=== PATIENT | female | born 1940 | race Caucasian/White ===

== ENCOUNTER → 2023-06-20 10:28 | Outpatient (REF) | payer OTHER, SELFPAY | LOC: OLABN 10:28 | PROVIDERS: ATTENDING PHYSICIAN Student in an Organized Health Care Education/Training Program | DX: E11.9 Type 2 diabetes mellitus without complications (principal) | CPT/HCPCS: 36415; 83036 ==

== ENCOUNTER → 2023-06-29 11:03 | Outpatient (REF) | payer OTHER, SELFPAY ==
[2023-06-29 12:00] LABS: % Basophils 0.7 % (0-2); % Eosinophils 1.1 % (0-6); % Immature Granulocytes 0.5 % (0-0.5); % Lymphocytes 27.6 % (20.5-51.1); % Monocytes 11.4 % (1.7-9.3); % Neutrophils 58.7 % (42.2-75.2); Absolute Basophils 0.1 10^3/uL (0-0.2); Absolute Eosinophils 0.1 10^3/uL (0-0.7); Absolute Immature Granulocytes 0.1 10^3/uL (0-0.05); Absolute Lymphocytes 2.7 10^3/uL (1.2-3.4); Absolute Monocytes 1.1 10^3/uL (0.1-0.6); Absolute Neutrophils 5.7 10^3/uL (1.4-6.5); Hematocrit 35.1 % (37.0-47.0); Hemoglobin 11.2 g/dL (12.0-16.0); Mean Corp Hgb Conc. 31.9 g/dL (33.0-37.0); Mean Corpuscular Hgb 26.4 pg (27.0-31.0); Mean Corpuscular Volume 82.6 fL (81.0-99.0); Nucleated Red Blood Cells % 0 %; Platelet Count 291 10^3/uL (130-400); Red Blood Cell Count 4.25 10^6/uL (4.20-5.40); Red Cell Dist. Width 16.6 % (11.5-14.5); White Blood Cell Count 9.6 10^3/uL (4.8-10.8)
[2023-06-29 12:10] LABS: ALT (SGPT) 42 U/L (0-35); AST (SGOT) 34 U/L (14-36); Albumin 3.2 g/dl (3.5-5.0); Alkaline Phosphatase 122 U/L (38-126); Blood Urea Nitrogen 14 mg/dl (7-17); Calcium 8.6 mg/dl (8.4-10.2); Carbon Dioxide 22 mmol/L (22-30); Chloride 102 mmol/L (98-107); Glucose 276 mg/dl (70-99); LDH 149 U/L (120-246); Potassium 4.3 mmol/L (3.5-5.1); Sodium 129 mmol/L (135-145); Total Bilirubin 0.4 mg/dl (0.2-1.3); Total Protein 6.3 g/dl (6.3-8.2); eGFR > 60.00
[2023-06-29 12:36] LABS: TSH 3.46 uIU/ml (0.47-4.68)
[2023-06-29 16:44] LABS: Hepatitis B Surface Antigen Negative (Negative)
[2023-06-29 18:36] LABS: Hepatitis B Core Ab, Total Negative (Negative); Hepatitis B Surface Antibody Negative; Hepatitis C Antibody Negative (Negative)
== END ==
LOC: OLABN 11:03
PROVIDERS: ATTENDING PHYSICIAN Student in an Organized Health Care Education/Training Program
DX: C43.59 Malignant melanoma of other part of trunk (principal)
CPT/HCPCS: 36415; 80053; 83615; 84443; 85025; 86704; 86706; 86803; 87340

== ENCOUNTER → 2023-07-18 09:18 | Outpatient (REF) | payer OTHER, SELFPAY ==
[2023-07-18 10:29] LABS: % Basophils 0.7 % (0-2); % Eosinophils 0.1 % (0-6); % Immature Granulocytes 0.7 % (0-0.5); % Lymphocytes 14.2 % (20.5-51.1); % Monocytes 10.3 % (1.7-9.3); Absolute Basophils 0.1 10^3/uL (0-0.2); Absolute Immature Granulocytes 0.1 10^3/uL (0-0.05); Absolute Lymphocytes 1.1 10^3/uL (1.2-3.4); Absolute Monocytes 0.8 10^3/uL (0.1-0.6); Absolute Neutrophils 5.5 10^3/uL (1.4-6.5); Hemoglobin 13.1 g/dL (12.0-16.0); Mean Corp Hgb Conc. 33.6 g/dL (33.0-37.0); Mean Corpuscular Hgb 26.5 pg (27.0-31.0); Mean Corpuscular Volume 78.8 fL (81.0-99.0); Mean Platelet Volume 9.7 fL (7.4-10.4); Nucleated Red Blood Cells % 0 %; Platelet Count 235 10^3/uL (130-400); Red Blood Cell Count 4.95 10^6/uL (4.20-5.40); Red Cell Dist. Width 16.1 % (11.5-14.5); White Blood Cell Count 7.4 10^3/uL (4.8-10.8)
[2023-07-18 10:44] LABS: ALT (SGPT) 39 U/L (0-35); AST (SGOT) 48 U/L (14-36); Albumin 3.5 g/dl (3.5-5.0); Alkaline Phosphatase 88 U/L (38-126); Blood Urea Nitrogen 16 mg/dl (7-17); Calcium 8.5 mg/dl (8.4-10.2); Carbon Dioxide 21 mmol/L (22-30); Chloride 92 mmol/L (98-107); Glucose 37 mg/dl (70-99); Magnesium 1.9 mg/dl (1.6-2.3); Potassium 3.7 mmol/L (3.5-5.1); Sodium 127 mmol/L (135-145); Total Bilirubin 0.7 mg/dl (0.2-1.3); Total Protein 6.8 g/dl (6.3-8.2); eGFR > 60.00
== END ==
LOC: OLABN 09:18
PROVIDERS: ATTENDING PHYSICIAN Student in an Organized Health Care Education/Training Program
DX: E11.9 Type 2 diabetes mellitus without complications (principal)
CPT/HCPCS: 36415; 80053; 83735; 85025

== ENCOUNTER 2023-07-23 20:42 | Inpatient (IN) | payer OTHER, SELFPAY ==
[2023-07-23] VITALS (10 sets, daily range): BP systolic 75–128; BP diastolic 31–63; BMI 25.7
[2023-07-23 18:21] LABS: % Basophils 0.6 % (0-2); % Eosinophils 0.7 % (0-6); % Immature Granulocytes 0.7 % (0-0.5); % Lymphocytes 24.5 % (20.5-51.1); % Monocytes 12.9 % (1.7-9.3); % Neutrophils 60.6 % (42.2-75.2); Absolute Basophils 0.1 10^3/uL (0-0.2); Absolute Eosinophils 0.1 10^3/uL (0-0.7); Absolute Immature Granulocytes 0.1 10^3/uL (0-0.05); Absolute Lymphocytes 2.1 10^3/uL (1.2-3.4); Absolute Monocytes 1.1 10^3/uL (0.1-0.6); Absolute Neutrophils 5.3 10^3/uL (1.4-6.5); Hematocrit 41.1 % (37.0-47.0); Hemoglobin 14.1 g/dL (12.0-16.0); Mean Corp Hgb Conc. 34.3 g/dL (33.0-37.0); Mean Corpuscular Hgb 26.4 pg (27.0-31.0); Mean Platelet Volume 8.3 fL (7.4-10.4); Nucleated Red Blood Cells % 0 %; Platelet Count 329 10^3/uL (130-400); Red Blood Cell Count 5.34 10^6/uL (4.20-5.40); Red Cell Dist. Width 15.9 % (11.5-14.5); White Blood Cell Count 8.7 10^3/uL (4.8-10.8)
[2023-07-23 18:34] LABS: ALT (SGPT) 71 U/L (0-35); AST (SGOT) 61 U/L (14-36); Albumin 3.8 g/dl (3.5-5.0); Alkaline Phosphatase 104 U/L (38-126); Blood Urea Nitrogen 12 mg/dl (7-17); Calcium 8.8 mg/dl (8.4-10.2); Carbon Dioxide 24 mmol/L (22-30); Chloride 93 mmol/L (98-107); Glucose 231 mg/dl (70-99); Potassium 3.6 mmol/L (3.5-5.1); Sodium 124 mmol/L (135-145); Total Protein 7.1 g/dl (6.3-8.2); eGFR > 60.00
--- NOTE | 2023-07-23 19:12 | ED.GENMED ---
History of Present Illness
General
Chief Complaint: Abnormal Lab Value
Source: patient, ambulance crew and [facility] records
Exam Limitations: none
Time Seen by Provider: 07/23/23 18:43
Nursing documentation reviewed up to this point in time: agreed with
Travel History
Have you had any contact with someone who has COVID-19?: No
Do you have any symptoms of coronavirus? Fever > 100 degrees, chills, cough, shortness of breath, sore throat, loss of taste or smell, muscle aches, or headache?: No
History of Present Illness
History of Present Illness:
83 female presents emergency department due to increased confusion per [facility]. Her sodium was 125 earlier today. She is on adjuvant therapy for melanoma.
Past History
Past History
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
ED Past Surgical History: None
Social History
Tobacco: Former smoker
Alcohol: None
Drug: None
Personal: Single
Living: alone
Employment: Retired
Family History
Family History: Other (Noncontributory)
Review of Systems
Review of Systems
Allergies reviewed?: Yes
All Other Systems: Not applicable
Constitutional: Reports no symptoms
EENT: Reports no symptoms
Respiratory: Reports no symptoms
Cardiac: Reports no symptoms
ABD/GI: Reports no symptoms
: Reports no symptoms
Musculoskeletal: Reports no symptoms
Skin: Reports no symptoms
Neurological: Reports other (Confusion)
Endocrine: Reports no symptoms
Hematologic/Lymphatic: Reports no symptoms
Psychiatric: Reports no symptoms
Phy Exam
Physical Exam
Physical Exam:
Physical Exam
General: Ill appearance, afebrile
Neck: supple. no meningeal signs. normal posterior pharynx
Heart: s1/s2 regular rate and rhythm, no murmur. equal radial
pulses.
HEENT: Pupils equal round reactive to light, EOMI
Lungs: no acute respiratory distress. clear bilaterally
Abdomen: normal bowel sounds. not tender. no CVAT
Neuro: alert and oriented. no focal neurological deficits cranial nerves II through XII intact
Skin: no rash
Psychiatric: well kept. interactive and cooperative
Extremities: no edema. no calf tenderness. negative homans. good distal pulses
Course
Orders/Labs/Results
Orders:
Orders
07/23/23 Dinner
Regular
At Your Request: Limited, Payroll Processor Required
07/23/23 18:02
Electrocardiogram (*1) Urgent
Reason for Study: QTc Monitoring
EKG- Treatment ONCE
07/23/23 18:12
Complete Blood Count/With Diff Urgent
Comprehensive Metabolic Panel Urgent
Serum Osmolality Urgent
07/23/23 19:16
Add On- LAB Urgent
Tests Added?: serum osmolality
CT Head W/o Iv Contrast Urgent
Comment:
Reason For Exam: episodic confusion
07/23/23 20:10
Admit/Transfer Patient As Directed
Co-Sign Provider:
Level of Care: Inpatient admission
Assign to:: IMU- Intermediate Care
Physician / Group: cristina
Diagnosis: uti/hyponatremia
Reason for Hospitalization: uti/hyponatremia
Expected length of stay greater than two midnights?: Yes
ELOS- Estimated Length of Stay in days: 2
I certify the patient meets the requirements for IP care: Yes
Code Status As Directed
Resuscitation Status: Full Code
07/23/23 20:12
0.9% Sodium Chloride 500 ml [Nss] 500 ml IV BOLUS
07/23/23 20:26
Osmolality, Random Urine Urgent
Date Specimen was Collected: 07/23/23
Time Specimen was Collected: 20:25
Urine Sodium Urgent
Date Specimen was Collected: 07/23/23
Time Specimen was Collected: 20:25
07/23/23 21:57
0.9% Sodium Chloride 1000 ml [Nss] 1,000 ml IV 80 mls/hr
Acetaminophen [Tylenol] 650 mg PO Q4HPRN PRN
Bisacodyl [Dulcolax] 10 mg RECTAL DAILYPRN PRN
Dextrose 50%-Water [Dextrose 50% Syringe] 12.5 grams IV Q71PVHT PRN
Glucagon [GlucaGen] 1 mg IM PRN PRN
Magnesium Hydroxide [Milk of Magnesia] 30 ml PO HSPRN PRN
Ondansetron Injectable [Zofran] 4 mg IV Q6HPRN PRN
07/23/23 21:57
Activity As Directed
Activity Level: As Tolerated
Bedside Glucose Monitoring As Directed
Frequency: AC&HS
Additional Instructions:: Change to q6h if pt on TPN, tube feeding or not eating
Vital Signs As Directed
Frequency: Per unit guidelines
DX Deep Vein Thrombosis Video Routine
07/23/23 22:00
CefTRIAXone [Rocephin] 1,000 mg IV Q24H
Sterile Water [Sterile Water For Injection] 10 ml IV Q24H
07/24/23 06:00
Complete Blood Count/With Diff IN AM
Glycohemoglobin (HgbA1c) IN AM
07/24/23 07:30
Insulin Aspart Corrective Low [Novolog Flexpen-Low Resistance] See Protocol SC AC
07/24/23 08:00
Heparin 5,000 units SC Q12
07/24/23 08:30
Amiodarone [Pacerone] 200 mg PO DAILY@0830
Metoprolol [Lopressor] 25 mg PO BID@0830,1830
07/24/23 18:30
Sodium Chloride 1 gram PO DAILY@1830
08/15/23 08:30
Cyanocobalamin [Vitamin B-12] 1,000 mcg PO Q30D
Abnormal Lab Results
07/23/23
18:12
MCV 77.0 L fL
(81.0-99.0)
MCH 26.4 L pg
(27.0-31.0)
RDW 15.9 H %
(11.5-14.5)
Abs Immat Gran (auto) 0.1 H 10^3/uL
(0-0.05)
Absolute Monos (auto) 1.1 H 10^3/uL
(0.1-0.6)
Immature Gran % 0.7 H %
(0-0.5)
Monocytes % 12.9 H %
(1.7-9.3)
Sodium 124 L mmol/L
(135-145)
Chloride 93 L mmol/L
(98-107)
Glucose 231 H mg/dl
(70-99)
AST 61 H U/L
(14-36)
ALT 71 H U/L
(0-35)
07/23/23 18:12
07/23/23 18:12
Vital Signs
Initial and Last Documented VS:
Initial Vital Signs
Temp Pulse Resp BP Pulse Ox
98.3 F 69 18 111/62 94
07/23/23 17:56 07/23/23 17:56 07/23/23 17:56 07/23/23 17:56 07/23/23 17:56
Last Documented Vital Signs
Temp Pulse Resp BP Pulse Ox
97.4 F 81 16 118/68 99
07/23/23 22:09 07/24/23 00:54 07/24/23 00:54 07/24/23 00:54 07/24/23 00:54
MDM/Problems Addressed
Differential Diagnosis Includes:
.. Intracranial tumor, SIADH
MDM/Problems Addressed:
83-year-old female with hyponatremia of unclear etiology. Episodic confusion, possibly TIA versus. Toxic metabolic encephalopathy. Admit to hospitalist
Chronic conditions affecting care: Arrhythmia and Cancer
Acute Exacerbation and/or Progression of Chronic Illness: Arrhythmia and Cancer
*Radiology
Radiology exam reviewed: radiology read reviewed (CT head no acute findings)
*Pulse Oximetry
Patient hypoxic: no
*EKG
Interpreted by ED Provider?: Yes
EKG Intrepretation Date: 07/23/23
EKG Intrepretation Time: 18:03
Interpretation: abnormal
Comparison EKG: changes noted
Heart Rate: 76
Rate: normal
Rhythm: av sequential
[place]: normal axis
Interval: normal interval
QRS Pattern: normal QRS
Ischemia: non-specific ST changes
*Oral And Maxillofacial Surgery Resident Interpretation
Rate: Oral And Maxillofacial Surgery Resident- N/A
*Critical Care Note
Total Time (30-74mins, 75-104mins- exclusive of procedures): Not Applicable
Data Reviewed
Review of Other/Old Records Reveals: Labs
Patient Management
Social determinants of health affecting care: Living situation
Discussion with other providers: Hospitalist
Escalation/DeEscalation of care consider admission/obs:
Admit indicated
ED Attending Note
-
Portions of this chart may have been created with voice recognition software.� Occasional wrong word or��sound alike� substitutions may have occurred due to the inherent limitations of voice recognition software.
Discharge Plan
Departure
Patient Disposition: Admit
Date of Disposition: 07/23/23
Time of Disposition: 19:53
Admit to: Telemetry
Presentation/result/management discussed w/ accepting MD/DO: Hospitalist
Patient with high blood pressure during this ER visit?: No
Condition: Fair
Discharge Problem:
Hyponatremia, Altered mental status
Interventions
Interventions:
*Risk Screen - Suicide Last Done: 07/23/23 17:56
*General Assessment Last Done: 07/23/23 18:46
*Neglect/Abuse Screening Last Done: 07/23/23 18:46
ED- Fall Risk Assessment Last Done: 07/23/23 18:29
*ED COVID-19 Vaccine History Last Done: 07/23/23 22:20
*Nursing Disposition Last Done: 07/23/23 22:16
Discharge Date and Time
Discharge Date/Time: 07/23/23 22:17
[2023-07-23 20:12] LABS: Osmolality Serum 275 mOsm/kg (275-300)
--- NOTE | 2023-07-23 20:15 | HPS.HSE ---
Family Physician
-
Family Physician: Derrell Mello DO
Chief Complaint
-
vomiting
History of Present Illness
83-year-old female with past medical history of paroxysmal atrial fibrillation, sleep apnea, hypertension, hypercholesteremia, diabetes, macular degeneration, melanoma with spread to lymph nodes status post first dose of immunotherapy on July 02,
presenting from [facility] for weakness.
Patient received first dose of immunotherapy for malignant melanoma on July 02. In the days following that she has had decreased p.o. intake, nausea and vomiting. Particularly over the past few days she has been feeling very weak. No fevers or
chills. No urinary symptoms. She also did have diarrhea in the past 2 weeks but this has resolved. No abdominal pain. No chest pain or shortness of breath. No cough.
Medical History
Past Medical History
Past Medical History: Reports Other (paroxysmal atrial fibrillation, sleep apnea, hypertension, hypercholesteremia, diabetes, macular degeneration, melanoma with spread to lymph nodes)
Past Surgical History: Reports None
Social History
Tobacco: Non-smoker
Alcohol: None
Drug: None
Family History
Family History: Not pertinent
Allergies / Home Medications
Allergies reflects when Allergies were last updated in [facility].
Home Medications with original date entered in [facility]
Allergy/Medication List:
Allergies
Allergy/AdvReac Type Severity Reaction Status Date / Time
No Known Allergies Allergy Verified 12/04/22 00:19
Home Medications
amiodarone 200 mg tablet 200 mg PO DAILY@82912/04/22
amlodipine 5 mg tablet 5 mg PO DAILY@82912/04/22
cyanocobalamin (vitamin B-12) 1,000 mcg tablet 1,000 mcg PO QMONTH@82912/04/22
gabapentin 100 mg capsule 100 mg PO TID@0830,1330,1830 12/04/22
metoprolol tartrate 25 mg tablet 25 mg PO BID@829,1830 12/04/22
Normal Saline Flush 0 ml IV .SEE BELOW 07/23/23
acetaminophen 325 mg tablet (Tylenol) 650 mg PO Q4H PRN mild pain/fever>100.4 07/23/23
bisacodyl 10 mg rectal suppository 10 mg OH DAILY PRN q 3 days when no BM and MOM/lactulose ineffective 07/23/23
glimepiride 2 mg tablet 2 mg PO DAILY@82907/23/23
lorazepam 0.5 mg tablet 0.25 mg PO DAILYPRN PRN 1 hr prior to transport p/u to [facility] appt. 07/23/23
magnesium hydroxide 400 mg/5 mL oral suspension (Milk of Magnesia) 30 ml PO HSPRN PRN constipation 07/23/23
metformin 500 mg tablet 500 mg PO DAILY@82907/23/23
ondansetron HCl 4 mg tablet 4 mg PO Q6H PRN nausea/vomiting 07/23/23
sodium chloride 1,000 mg soluble tablet 1,000 mg PO DAILY@182907/23/23
Review of Systems
-
History Source: Patient
A 12 point ROS was completed and negative except as noted: Yes
Constitutional: Reports No Symptoms
EENT: Reports No Symptoms
Respiratory: Reports No Symptoms
Cardiac: Reports No Symptoms
Abdomen/GI: Reports See HPI
: Reports No Symptoms
Musculoskeletal: Reports No Symptoms
Skin: Reports No Symptoms
Neurological: Reports No Symptoms
Endocrine: Reports No Symptoms
Hematologic/Lymphatic: Reports No Symptoms
Psych: Reports No Symptoms
Physical Exam
Vital Signs
Vital Signs
Temp Pulse Resp BP Pulse Ox
98.3 F 74 17 118/58 98
07/23/23 17:56 07/23/23 18:30 07/23/23 18:30 07/23/23 18:00 07/23/23 18:47
Physical Exam
General: Well Developed, Well Nourished and No Apparent Distress
HEENT: NormoCephalic, Moist mucous membranes and Atraumatic
Respiratory: Clear
Cardiac: S1/S2 and Regular Rhythm; No Murmur or Rub
GI: Soft, Non Tender, Non Distended and Normal Bowel Sounds; No Organomegaly
Rectal: Deferred by Provider
Musculoskeletal: No Clubbing, No Cyanosis and No Edema
Skin: No Rash
Neuro: Nonfocal/grossly intact
Laboratory Results
-
07/23/23 18:12
07/23/23 18:12
Laboratory Results
Total Bilirubin 1.0 mg/dl (0.2-1.3) 07/23/23 18:12
AST 61 U/L (14-36) H 07/23/23 18:12
ALT 71 U/L (0-35) H 07/23/23 18:12
Alkaline Phosphatase 104 U/L (38-126) 07/23/23 18:12
Data Reviewed
-
Lab Data: Labs Reviewed by me
Old Records: Reviewed
Impression/Plan
-
IMPRESSION:
PLAN:
# Metabolic encephalopathy secondary to UTI/hyponatremia
-See individually below
# Suspected urinary tract infection
-Patient with blood pressure in 80s, hold amlodipine
-Urinalysis shows slightly cloudy urine, 6-10 WBC, trace leukocyte esterase
-Urine culture pending
-IV fluids
-Ceftriaxone
# Nausea/vomiting after immunotherapy
-As needed Zofran
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
-Sodium 124 from baseline of 129-135
-Urine sodium, osmolality pending
-Monitor with IV fluids
-Continue sodium chloride tablet
# Mild transaminitis
-Improved from previous
Melanoma
-Status post immunotherapy /
Paroxysmal atrial fibrillation
-Continue amiodarone
-Continue metoprolol
Suspected sleep apnea
Essential hypertension
- hold amlodipine
Hypercholesterolemia
Type 2 diabetes
-Hold glimepiride, metformin
-Insulin sliding scale
Neuropathy
-Hold gabapentin
Macular degeneration
Full code
DVT prophylaxis�heparin
Regular diet
[2023-07-23] MEDS: ROCEPHIN 1000 MG IV (20:29)
[2023-07-23] MEDS: NSS 500 IV (20:29)
[2023-07-23 20:35] LABS: Osmolality Urine 713 mOsm/kg (300-900)
[2023-07-23 20:49] LABS: Urine Sodium 83 mmol/L (30-90)
[2023-07-23 22:47] LABS: Glucose - Point of Care 212 mg/dl (70-99)
--- NOTE | 2023-07-23 22:50 | PTCARENOTE ---
Addendum entered by Amanda Lamas RN 07/24/23 01:43:
Pt feeling nausea, PRN given see MAR. Pt continues to call out 'nurse' asking that someone to stay in the room with her. Emotional support given. Vitals stable at this time.
Original Note:
Pt brought up by ED RN. Pt AAOX3 with daughter at bed side. Pt verbalizing anxiety about daughter leaving, daughter asking if Ativan could be given for anxiety. Per daughter Ativan is what she takes at [facility] when needed. Emotional support
given and night ALARM MECHANISM ADJUSTER made aware.
[2023-07-23] MEDS: NSS 1000 IV (22:51)
[2023-07-23] MEDS: STERILE WATER FOR INJECTION IV (23:09)
[2023-07-24] VITALS (14 sets, daily range): BP systolic 96–126; BP diastolic 46–99; BMI 25.1
[2023-07-24] MEDS: PHENERGAN 50.25 MG IV (00:52)
[2023-07-24 03:52] LABS: % Basophils 0.6 % (0-2); % Eosinophils 0.4 % (0-6); % Immature Granulocytes 0.7 % (0-0.5); % Lymphocytes 18.7 % (20.5-51.1); % Monocytes 9.6 % (1.7-9.3); Absolute Basophils 0.1 10^3/uL (0-0.2); Absolute Immature Granulocytes 0.1 10^3/uL (0-0.05); Absolute Lymphocytes 1.8 10^3/uL (1.2-3.4); Absolute Monocytes 0.9 10^3/uL (0.1-0.6); Absolute Neutrophils 6.6 10^3/uL (1.4-6.5); Hematocrit 39.4 % (37.0-47.0); Hemoglobin 13.8 g/dL (12.0-16.0); Mean Platelet Volume 8.2 fL (7.4-10.4); Nucleated Red Blood Cells % 0 %; Platelet Count 310 10^3/uL (130-400); Red Blood Cell Count 5.12 10^6/uL (4.20-5.40); Red Cell Dist. Width 15.8 % (11.5-14.5); White Blood Cell Count 9.5 10^3/uL (4.8-10.8)
[2023-07-24 05:01] LABS: Blood Urea Nitrogen 10 mg/dl (7-17); Calcium 8.1 mg/dl (8.4-10.2); Carbon Dioxide 26 mmol/L (22-30); Chloride 95 mmol/L (98-107); Estimated Creatinine Clearance 64 ml/min; Glucose 247 mg/dl (70-99); Potassium 3.5 mmol/L (3.5-5.1); Sodium 127 mmol/L (135-145); eGFR > 60.00
[2023-07-24 07:48] LABS: Glucose - Point of Care 226 mg/dl (70-99)
[2023-07-24 08:32] LABS: Glycohemoglobin (HgbA1c) 8.7 % (4.0-5.6)
--- NOTE | 2023-07-24 08:55 | W.PN.HOSP.TC ---
Today's Communication/Plan
-
Obtain cultures and cont IV antibiotics. Salt tablets and fluid restriction -monitor sodium. Diabetic diet. PT OT.
Assessment / Plan
Assessment / Plan
Physical exam:
General: Acutely ill
HEENT: Normocephalic, Atraumatic and Moist Mucous Membranes
Respiratory: Clear to Auscultation; Negative Wheezes, Rales or Rhonchi
Cardiac: Regular Rhythm and S1/S2
GI: Soft, Nontender and Nondistended
Musculoskeletal: No Clubbing, No Cyanosis and No Edema
Neuro: Awake, Alert and Oriented although slightly off, no gross neurological deficits
Psych: Calm
A/P:
# Metabolic encephalopathy secondary to possible UTI/worsening hyponatremia
-Improving
-CT of the head no acute intracranial abnormalities
-PT OT tavon
-Updated son over the phone today (he is in rehab himself) and then called her daughter.
# Suspected urinary tract infection
-I do not see any cultures upon admission so patient on antibiotic and will obtain blood cultures and urine cultures today 07/23.
-Continue empiric antibiotics
-Hemodynamically stable. Stop IV fluids
Patient upon admission per admitting physician:
-Patient with blood pressure in 80s, hold amlodipine
-Urinalysis shows slightly cloudy urine, 6-10 WBC, trace leukocyte esterase
-Urine culture pending
-IV fluids
-Ceftriaxone
# Nausea/vomiting after immunotherapy
-As needed Zofran
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
-Urine sodium 83, urine osmolarity 713
-Given IV fluid and sodium went up from 124 to 127 (appropriately going up in the timeframe of admission)
-Start fluid restriction today on 07/23
-Continue salt tablets 1 g p.o. daily
-Continue to monitor sodium
# Mild transaminitis
-Improved from previous
-Check ultrasound hepatitis panel and
-Will recheck in a.m.
Melanoma
-Status post immunotherapy 4/2
Paroxysmal atrial fibrillation
-Continue amiodarone
-Continue metoprolol
-Not on anticoagulation, unsure why.
Suspected sleep apnea
Essential hypertension
-Continue to hold amlodipine
Hypercholesterolemia
Type 2 diabetes
-Hold glimepiride, metformin
-Continue insulin sliding scale
-Change diet to diabetic diet.
Neuropathy
-Continue to hold gabapentin
Macular degeneration
Full code
DVT prophylaxis�heparin
Time spent 52 minutes with patient care, reviewing records, ordering workup, management, and discussion with RN and family.
Anticipated Discharge: > 48 hours
Subjective/Interval History
-
Date of Service: July 24, 2023
Patient more alert today. No abdominal pain or nausea or vomiting. Afebrile
Objective Data
-
Labs:
Laboratory Results
07/24/23
03:45
WBC 9.5
Hgb 13.8
Hct 39.4
Plt Count 310
Sodium 127 L
Potassium 3.5
Chloride 95 L
Carbon Dioxide 26
BUN 10
Creatinine 0.6
Glucose 247 H
Calcium 8.1 L
Vital Signs:
Vital Signs
Temp Pulse Resp BP Pulse Ox
97.1 F 76 16 126/66 98
07/24/23 07:33 07/24/23 06:30 07/24/23 06:24 07/24/23 06:30 07/24/23 06:24
I&O
07/23/23 07/24/23 07/25/23
06:59 06:59 06:59
Intake Total 750 / 750
Balance 750 / 750
Review of Systems
-
All other systems: Reviewed and negative
[2023-07-24] MEDS: HEPARIN 5000 UNITS SC ×2 (09:43→21:08)
[2023-07-24] MEDS: PACERONE 200 MG PO (09:45)
[2023-07-24] MEDS: LOPRESSOR 25 MG PO ×2 (09:45→18:08)
[2023-07-24] MEDS: NOVOLOG FLEXPEN-LOW RESISTANCE 2 UNITS SC ×2 (10:44→13:13)
--- NOTE | 2023-07-24 11:00 | WOUNDNOTE ---
WON RN note: Patient admitted with hyponatremia and altered mental status.
See H&P for complete history.
PMH: A Fib, HTN, DM, melanoma spread to lymph nodes, macular degeneration.
Wound Location and type/assessment: Patient admitted with: R upper back tumor wound. [place] raised growth with scant yellow center, no odor. Patient offers no complaint of pain. Sacrum and heels intact.
Appetite: Good.
Pressure redistribution devices in place: Accumax, can turn with minimal assist. Pillow placed under calves.
Plan:Local wound care to tumor wound daily and as needed for drainage.
Will confirm orders with hospitalist and updated nurse Destiny.
Updated care plan and will follow as needed.
Note to case management of equipment requested for discharge:None.
[2023-07-24] MEDS: NSS IV (11:58)
--- NOTE | 2023-07-24 12:40 | CM ---
Patient from [facility] with Dx Metabolic encephalopathy secondary to UTI/hyponatremia. Receiving IV Abx. Seen by wound care nurse.
Spoke with Mimi, Adms [facility]; the patient resides there in LTC and is on an [place] bed hold. Mimi confirms pharmacy is [facility].
Spoke with Aman, Application Operations Engineer [facility] (ph [phone]); the patient was A/O x3, assisted with ADLs, required assist of 1 for transfers, was in a nursing maintenance program for ambulating with RW (not getting PT).
Plan follow up with patient/daughter about return to [facility].
Plan return to [facility] when medically ready.
[2023-07-24 13:08] LABS: Glucose - Point of Care 225 mg/dl (70-99)
--- NOTE | 2023-07-24 13:56 | PTCARENOTE ---
Pt received from hourly shift. Pt anxious, needs frequent reassurance. Calls out for nurse frequently. Pt inc of urine, pt saturated x2. Pt placed on purewick. Pt on 2L with sats of 99%. Pt is an assist to feed, pt has macular degeneration and is
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 Pt turned , can assist with turns and roll from side to side. Blood cultures sent to the lab x2. Please see nursing shift assessment for full head to toe. Hourly rounds maintained on Pt.
[2023-07-24 16:38] LABS: Urine Albumin Trace (Neg - Trace); Urine Bilirubin 1+ (Negative); Urine Character Clear (Clear); Urine Color Yellow; Urine Glucose 3+ (Negative); Urine Ketone 3+ (Negative); Urine Leukocyte Negative (Negative); Urine Nitrite Negative (Negative); Urine Occult Blood Negative (Negative); Urine Urobilinogen 1+ (Neg - 1+); Urine pH 6.5 (5.0-9.0)
[2023-07-24 17:10] LABS: Glucose - Point of Care 193 mg/dl (70-99)
[2023-07-24] MEDS: NOVOLOG FLEXPEN-LOW RESISTANCE 1 UNITS SC (17:17)
[2023-07-24] MEDS: SODIUM CHLORIDE 1 GRAM PO ×2 (18:08→18:09)
--- NOTE | 2023-07-24 20:00 | PTCARENOTE ---
Addendum entered by Amanda Lamas RN 07/25/23 05:23:
Pt did not have much sleep, Pt calling out for nurse appearing anxious and saying 'i am tired but wont let my self sleep'. She could not say why. Emotional support given.
Original Note:
Assumed care of Pt from day RN. Pt had no complaints at this time. Pt looking forward to Daughter visiting soon. Assessment care and vitals as charted.
[2023-07-24] MEDS: STERILE WATER FOR INJECTION 10 ML IV (21:09)
[2023-07-24] MEDS: ROCEPHIN 1000 MG IV (21:09)
[2023-07-24 21:55] LABS: Glucose - Point of Care 221 mg/dl (70-99)
[2023-07-25] VITALS (16 sets, daily range): BP systolic 82–140; BP diastolic 57–88; PULSE 72–73; O2SAT 95; BMI 25.1
[2023-07-25 05:39] LABS: % Basophils 0.9 % (0-2); % Eosinophils 0.3 % (0-6); % Immature Granulocytes 0.7 % (0-0.5); % Lymphocytes 23.6 % (20.5-51.1); % Monocytes 10.3 % (1.7-9.3); % Neutrophils 64.2 % (42.2-75.2); Absolute Basophils 0.1 10^3/uL (0-0.2); Absolute Immature Granulocytes 0.1 10^3/uL (0-0.05); Absolute Lymphocytes 2.1 10^3/uL (1.2-3.4); Absolute Monocytes 0.9 10^3/uL (0.1-0.6); Absolute Neutrophils 5.8 10^3/uL (1.4-6.5); Hematocrit 40.1 % (37.0-47.0); Mean Corp Hgb Conc. 34.9 g/dL (33.0-37.0); Mean Corpuscular Hgb 26.7 pg (27.0-31.0); Mean Corpuscular Volume 76.5 fL (81.0-99.0); Mean Platelet Volume 8.7 fL (7.4-10.4); Nucleated Red Blood Cells % 0 %; Platelet Count 333 10^3/uL (130-400); Red Blood Cell Count 5.24 10^6/uL (4.20-5.40); Red Cell Dist. Width 15.9 % (11.5-14.5)
[2023-07-25 07:28] LABS: Glucose - Point of Care 215 mg/dl (70-99)
[2023-07-25 07:29] LABS: ALT (SGPT) 83 U/L (0-35); AST (SGOT) 52 U/L (14-36); Albumin 3.7 g/dl (3.5-5.0); Alkaline Phosphatase 109 U/L (38-126); Blood Urea Nitrogen 11 mg/dl (7-17); Calcium 8.5 mg/dl (8.4-10.2); Carbon Dioxide 27 mmol/L (22-30); Chloride 95 mmol/L (98-107); Direct Bilirubin 0.4 mg/dl (0.0-0.4); Estimated Creatinine Clearance 64 ml/min; Glucose 229 mg/dl (70-99); Potassium 3.2 mmol/L (3.5-5.1); Sodium 127 mmol/L (135-145); Total Bilirubin 0.7 mg/dl (0.2-1.3); eGFR > 60.00
[2023-07-25] MEDS: PACERONE 200 MG PO (08:46)
[2023-07-25] MEDS: LOPRESSOR 25 MG PO ×2 (08:46→17:23)
[2023-07-25] MEDS: HEPARIN 5000 UNITS SC ×2 (08:46→21:07)
[2023-07-25] MEDS: NOVOLOG FLEXPEN-LOW RESISTANCE 2 UNITS SC (08:46)
--- NOTE | 2023-07-25 10:16 | W.PN.HOSP.TC ---
Today's Communication/Plan
-
IV antibiotics. Increase insulin sliding scale. Resume oral hypoglycemics.
Assessment / Plan
Assessment / Plan
Physical exam:
General: Acutely ill
HEENT: Normocephalic, Atraumatic and Moist Mucous Membranes
Respiratory: Clear to Auscultation; Negative Wheezes, Rales or Rhonchi
Cardiac: Regular Rhythm and S1/S2
GI: Soft, Nontender and Nondistended
Musculoskeletal: No Clubbing, No Cyanosis and No Edema
Neuro: Awake, Alert and Oriented although slightly off, no gross neurological deficits
Psych: Calm
A/P:
# Metabolic encephalopathy secondary to possible UTI/worsening hyponatremia
-Improving
-CT of the head no acute intracranial abnormalities
-PT OT eval
-Updated son over the phone yesterday (he is in rehab himself) and then proceeded to call her daughter and I discussed with her plan of care.
# Suspected urinary tract infection
-Continue antibiotics with caveat as below.
-I did not see any cultures upon admission so patient on antibiotic and will obtain blood cultures and urine cultures on 07/23. Blood cultures pending. Urinalysis unremarkable but after antibiotics so cautious interpretation.
-Hemodynamically stable. Stopped IV fluids
# Nausea/vomiting after immunotherapy
-As needed Zofran
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
-Na 127 today, same as yesterday
-Urine sodium 83, urine osmolarity 713
-Given IV fluid and sodium went up from 124 to 127 (appropriately going up in the timeframe of admission)
-Start fluid restriction since 07/23
-Continue salt tablets 1 g p.o. daily--> increased 1 gr TID today 07/24.
-Continue to monitor sodium
# Mild transaminitis
-Improved from previous
-Check ultrasound today-pending
-hepatitis panel pending
-Will recheck LFTs in a.m.
Melanoma
-Status post immunotherapy 07/02
Paroxysmal atrial fibrillation
-Continue amiodarone
-Continue metoprolol
-Not on anticoagulation, unsure why.
Suspected sleep apnea
Essential hypertension
-Continue to hold amlodipine
Hypercholesterolemia
Type 2 diabetes
-Resume glimepiride, metformin
-Continue insulin sliding scale to increase to moderate
-Changed diet to diabetic diet yesterday.
Neuropathy
-Continue to hold gabapentin
Macular degeneration
Full code
DVT prophylaxis�heparin
Anticipated Discharge: 24 - 48 hours
Subjective/Interval History
-
Date of Service: July 25, 2023
Patient is alert, generalized weakness, no fever. No chest pain or shortness of breath
Objective Data
-
Labs:
Laboratory Results
07/25/23 07/25/23
05:02 07:07
WBC 9.0
Hgb 14.0
Hct 40.1
Plt Count 333
Sodium Cancelled 127 L
Potassium Cancelled 3.2 L
Chloride Cancelled 95 L
Carbon Dioxide Cancelled 27
BUN Cancelled 11
Creatinine Cancelled 0.6
Glucose Cancelled 229 H
Calcium Cancelled 8.5
Total Bilirubin Cancelled 0.7
AST Cancelled 52 H
ALT Cancelled 83 H
Alkaline Phosphatase Cancelled 109
Vital Signs:
Vital Signs
Temp Pulse Resp BP Pulse Ox
97.7 F 76 15 120/69 94
07/25/23 07:02 07/25/23 08:46 07/25/23 06:00 07/25/23 08:46 07/25/23 06:00
I&O
07/24/23 07/25/23 07/26/23
06:59 06:59 06:59
Intake Total 750 / 750 410 / 410
Output Total 100 / 100
Balance 750 / 750 310 / 310
[2023-07-25] MEDS: AMARYL 2 MG PO (10:45)
[2023-07-25] MEDS: KCL 40 MEQ PO ×2 (10:45→16:12)
[2023-07-25] MEDS: GLUCOPHAGE 500 MG PO (10:45)
[2023-07-25] MEDS: NOVOLOG FLEXPEN-MODERATE RESISTANCE 3 UNITS SC (13:25)
[2023-07-25 13:35] LABS: Glucose - Point of Care 234 mg/dl (70-99)
[2023-07-25] MEDS: SODIUM CHLORIDE 1 GRAM PO ×2 (16:12→21:08)
[2023-07-25 16:51] LABS: Glucose - Point of Care 146 mg/dl (70-99)
[2023-07-25] MEDS: NOVOLOG FLEXPEN-MODERATE RESISTANCE SC (16:54)
[2023-07-25] MEDS: ROCEPHIN 1000 MG IV (21:07)
[2023-07-25] MEDS: STERILE WATER FOR INJECTION 10 ML IV (21:08)
[2023-07-25 22:49] LABS: Glucose - Point of Care 143 mg/dl (70-99)
[2023-07-26] VITALS (12 sets, daily range): BP systolic 93–141; BP diastolic 50–127; BMI 25.0
--- NOTE | 2023-07-26 01:02 | PTCARENOTE ---
Pt appearing to be getting sleep tonight. Respirations even un labored, vitals stable. Assessment care and vitals as charted.
[2023-07-26 04:32] LABS: % Eosinophils 0.5 % (0-6); % Immature Granulocytes 0.6 % (0-0.5); % Lymphocytes 27.7 % (20.5-51.1); % Monocytes 11.4 % (1.7-9.3); % Neutrophils 58.8 % (42.2-75.2); Absolute Basophils 0.1 10^3/uL (0-0.2); Absolute Eosinophils 0.1 10^3/uL (0-0.7); Absolute Immature Granulocytes 0.1 10^3/uL (0-0.05); Absolute Lymphocytes 2.7 10^3/uL (1.2-3.4); Absolute Monocytes 1.1 10^3/uL (0.1-0.6); Absolute Neutrophils 5.8 10^3/uL (1.4-6.5); Hematocrit 41.6 % (37.0-47.0); Mean Corp Hgb Conc. 33.7 g/dL (33.0-37.0); Mean Corpuscular Hgb 26.1 pg (27.0-31.0); Mean Corpuscular Volume 77.6 fL (81.0-99.0); Mean Platelet Volume 8.4 fL (7.4-10.4); Nucleated Red Blood Cells % 0 %; Platelet Count 358 10^3/uL (130-400); Red Blood Cell Count 5.36 10^6/uL (4.20-5.40); Red Cell Dist. Width 16.3 % (11.5-14.5); White Blood Cell Count 9.8 10^3/uL (4.8-10.8)
[2023-07-26 04:57] LABS: ALT (SGPT) 89 U/L (0-35); AST (SGOT) 70 U/L (14-36); Albumin 3.7 g/dl (3.5-5.0); Alkaline Phosphatase 100 U/L (38-126); Blood Urea Nitrogen 16 mg/dl (7-17); Calcium 9.1 mg/dl (8.4-10.2); Carbon Dioxide 20 mmol/L (22-30); Chloride 102 mmol/L (98-107); Estimated Creatinine Clearance 48 ml/min; Glucose 190 mg/dl (70-99); Potassium 4.4 mmol/L (3.5-5.1); Sodium 132 mmol/L (135-145); Total Bilirubin 0.7 mg/dl (0.2-1.3); eGFR > 60.00
[2023-07-26] MEDS: NOVOLOG FLEXPEN-MODERATE RESISTANCE 1 UNITS SC (07:59)
[2023-07-26 08:04] LABS: Glucose - Point of Care 178 mg/dl (70-99)
--- NOTE | 2023-07-26 08:41 | W.PN.HOSP.TC ---
Addendum entered and electronically signed by Aric Collazo MD 07/26/23 13:35:
Hypokalemia
Original Note:
Today's Communication/Plan
-
Continue current management. Discharge planning in progress.
Assessment / Plan
Assessment / Plan
Physical exam:
General: Acutely ill
HEENT: Normocephalic, Atraumatic and Moist Mucous Membranes
Respiratory: Clear to Auscultation; Negative Wheezes, Rales or Rhonchi
Cardiac: Regular Rhythm and S1/S2
GI: Soft, Nontender and Nondistended
Musculoskeletal: No Clubbing, No Cyanosis and No Edema
Neuro: Awake, Alert and Oriented although slightly off, no gross neurological deficits
Psych: Calm
A/P:
# Metabolic encephalopathy secondary to possible UTI/worsening hyponatremia
-Improving
-CT of the head no acute intracranial abnormalities
-PT OT recommending skilled rehab
-Updated son over the phone (he is in rehab himself) and then proceeded to call her daughter and I discussed with her about plan of care.
# Suspected urinary tract infection
-Continue antibiotics with caveat as below.
-I did not see any cultures upon admission so patient on antibiotic and will obtain blood cultures and urine cultures on 07/23. Blood cultures pending. Urinalysis unremarkable but after antibiotics so cautious interpretation.
-IV ceftriaxone change to oral
-Hemodynamically stable. Stopped IV fluids
# Nausea/vomiting after immunotherapy
-As needed Zofran
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
-Na 132 today
-Urine sodium 83, urine osmolarity 713
-Given IV fluid and sodium went up from 124 to 127 (appropriately going up in the timeframe of admission)
-Start fluid restriction since 07/23
-Continue salt tablets 1 g p.o. daily--> increased 1 gr TID since 07/24.
-Continue to monitor sodium
# Mild transaminitis
-Improved from previous
-Check ultrasound-fatty liver disease
-hepatitis panel pending
-Will recheck LFTs in a.m. or as outpatient
Melanoma
-Status post immunotherapy 07/02
Paroxysmal atrial fibrillation
-Continue amiodarone
-Continue metoprolol
-Not on anticoagulation, unsure why.
Suspected sleep apnea
Essential hypertension
-Continue to hold amlodipine
Hypercholesterolemia
Type 2 diabetes
-Resume glimepiride, metformin
-Continue insulin sliding scale to increase to moderate
-Changed diet to diabetic diet yesterday.
Neuropathy
-Continue to hold gabapentin
Macular degeneration
Full code
DVT prophylaxis�heparin
Anticipated Discharge: Today
Subjective/Interval History
-
Date of Service: July 26, 2023
Patient denies any new complaints. Alert but tired.
Objective Data
-
Labs:
Laboratory Results
07/26/23
04:09
WBC 9.8
Hgb 14.0
Hct 41.6
Plt Count 358
Sodium 132 L
Potassium 4.4 D
Chloride 102
Carbon Dioxide 20 L
BUN 16
Creatinine 0.8
Glucose 190 H
Calcium 9.1
Total Bilirubin 0.7
AST 70 H
ALT 89 H
Alkaline Phosphatase 100
Vital Signs:
Vital Signs
Temp Pulse Resp BP Pulse Ox
97.9 F 72 15 114/50 94
07/26/23 07:34 07/26/23 06:00 07/26/23 06:00 07/26/23 06:00 07/26/23 06:00
I&O
07/25/23 07/26/23 07/27/23
06:59 06:59 06:59
Intake Total 410 / 410 200 / 200
Output Total 100 / 100
Balance 310 / 310 200 / 200
[2023-07-26] MEDS: SODIUM CHLORIDE 1 GRAM PO ×3 (08:49→19:48)
[2023-07-26] MEDS: LOPRESSOR 25 MG PO ×2 (08:49→17:14)
[2023-07-26] MEDS: GLUCOPHAGE 500 MG PO (08:49)
[2023-07-26] MEDS: PACERONE 200 MG PO (08:50)
[2023-07-26] MEDS: HEPARIN 5000 UNITS SC ×2 (08:50→19:48)
[2023-07-26] MEDS: AMARYL 2 MG PO (08:50)
--- NOTE | 2023-07-26 10:51 | CM ---
Addendum entered by Christy Grier RN 07/26/23 11:39:
Spoke with patient's son Anthony & daughter Maia; both agree with d/c back to [facility], once insurance approves rehab. Daughter will be the primary contact going forwaard, as son is in [facility] for LTC. IMM completed with
daughter.
Original Note:
Patient from [facility] with Dx Metabolic encephalopathy secondary to UTI/hyponatremia. Room air. Seen by wound care nurse. PT & OT recommend skilled rehab.
Spoke with Mimi, [facility]; they are able to accept the patient back once insurance auth is obtained.
Spoke with Stevie Benral; requested insurance auth for SNF, reference # [id number] obtained. Clinicals can be faxed to [phone]---> sent via [employer] Fax.
Plan [facility] once insurance auth obtained.
--- NOTE | 2023-07-26 11:12 | PN.CDI ---
CDI
- -
CDI:
Physician Documentation Request
Admit Date: 07/23/23 20:42
Dear Doctor Zay,
Patient admitted for metabolic encephalopathy.
07/24 Potassium level: 3.2
07/24 Potassium chloride 40 meq PO 2 doses administered
Based on the above, could you clarify in the progress notes, the appropriate diagnosis, if significant, that supports the above abnormalities and additional evaluation, monitoring and/or treatment rendered:
Hypokalemia
Abnormal lab value insignificant
Other
Use of terms such as suspected, likely, concern for, or probable (associated with a specific diagnosis that is being evaluated, monitored, or treated as if it exists) are acceptable and can be coded in the inpatient setting, when documented at the
time of discharge.
Thank you,
Candis Finn RN, BSN
CDI Specialist
Available via [place] text
Please use your independent medical judgment in providing your response.
[2023-07-26 11:42] LABS: Glucose - Point of Care 202 mg/dl (70-99)
[2023-07-26] MEDS: NOVOLOG FLEXPEN-MODERATE RESISTANCE 3 UNITS SC (12:06)
--- NOTE | 2023-07-26 12:27 | PTCARENOTE ---
Assumed care of patient at beginning of this shift from previous RN. Patient Ox3 but forgetful; anxious. Denies nausea. Remains 100% a-paced with BBB on monitor; 94-98% on RA. See worklist for full assessment and vital signs.
[2023-07-26] MEDS: NOVOLOG FLEXPEN-MODERATE RESISTANCE SC (16:50)
[2023-07-26 16:53] LABS: Glucose - Point of Care 76 mg/dl (70-99)
[2023-07-26] MEDS: CEFTIN 500 MG PO (19:48)
[2023-07-26 20:14] LABS: Hepatitis B Surface Antigen Negative (Negative)
[2023-07-26 20:32] LABS: Hepatitis B Core Ab, Total Negative (Negative); Hepatitis B Surface Antibody Negative; Hepatitis C Antibody Negative (Negative)
[2023-07-26 21:54] LABS: Glucose - Point of Care 109 mg/dl (70-99)
[2023-07-27] VITALS: BP 134/78
[2023-07-27 02:36] LABS: Hepatitis A IgM Antibody Negative (Negative)
[2023-07-27 02:39] VITALS: BP 134/63
[2023-07-27 03:26] VITALS: BMI 24.8
[2023-07-27 04:00] VITALS: BP 143/73
[2023-07-27 04:34] LABS: % Eosinophils 0.8 % (0-6); % Immature Granulocytes 0.5 % (0-0.5); % Lymphocytes 29.4 % (20.5-51.1); % Monocytes 11.5 % (1.7-9.3); % Neutrophils 56.8 % (42.2-75.2); Absolute Basophils 0.1 10^3/uL (0-0.2); Absolute Eosinophils 0.1 10^3/uL (0-0.7); Absolute Lymphocytes 2.5 10^3/uL (1.2-3.4); Absolute Neutrophils 4.9 10^3/uL (1.4-6.5); Hematocrit 38.5 % (37.0-47.0); Mean Corp Hgb Conc. 33.8 g/dL (33.0-37.0); Mean Corpuscular Hgb 26.6 pg (27.0-31.0); Mean Corpuscular Volume 78.7 fL (81.0-99.0); Mean Platelet Volume 8.9 fL (7.4-10.4); Nucleated Red Blood Cells % 0 %; Platelet Count 294 10^3/uL (130-400); Red Blood Cell Count 4.89 10^6/uL (4.20-5.40); Red Cell Dist. Width 16.3 % (11.5-14.5); White Blood Cell Count 8.6 10^3/uL (4.8-10.8)
[2023-07-27 05:04] LABS: ALT (SGPT) 80 U/L (0-35); AST (SGOT) 48 U/L (14-36); Albumin 3.4 g/dl (3.5-5.0); Alkaline Phosphatase 93 U/L (38-126); Blood Urea Nitrogen 17 mg/dl (7-17); Calcium 8.6 mg/dl (8.4-10.2); Carbon Dioxide 20 mmol/L (22-30); Chloride 103 mmol/L (98-107); Estimated Creatinine Clearance 48 ml/min; Glucose 122 mg/dl (70-99); Potassium 3.8 mmol/L (3.5-5.1); Sodium 128 mmol/L (135-145); Total Bilirubin 0.7 mg/dl (0.2-1.3); Total Protein 6.7 g/dl (6.3-8.2); eGFR > 60.00
[2023-07-27 07:48] LABS: Glucose - Point of Care 155 mg/dl (70-99)
--- NOTE | 2023-07-27 07:49 | W.PN.HOSP.TC ---
Today's Communication/Plan
-
Discharge planning today.
Assessment / Plan
Assessment / Plan
Physical exam:
General: No acute distress
HEENT: Normocephalic, Atraumatic and Moist Mucous Membranes
Respiratory: Clear to Auscultation; Negative Wheezes, Rales or Rhonchi
Cardiac: Regular Rhythm and S1/S2
GI: Soft, Nontender and Nondistended
Musculoskeletal: No Clubbing, No Cyanosis and No Edema
Neuro: Awake, Alert and Oriented, no gross neurological deficits
Psych: Calm
A/P:
# Metabolic encephalopathy secondary to possible UTI/worsening hyponatremia
-Improving
-CT of the head no acute intracranial abnormalities
-PT OT recommending skilled rehab
-Updated son over the phone (he is in rehab himself) and then proceeded to call her daughter and I discussed with her about plan of care. Discussed with daughter again yesterday.
# Suspected urinary tract infection
-Continue antibiotics with caveat as below.
-I did not see any cultures upon admission so patient on antibiotic and will obtain blood cultures and urine cultures on 07/23. Blood cultures pending. Urinalysis unremarkable but after antibiotics so cautious interpretation.
-IV ceftriaxone changed to oral
-Hemodynamically stable. Stopped IV fluids
# Nausea/vomiting after immunotherapy
-As needed Zofran
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
-Na 128 today
-Urine sodium 83, urine osmolarity 713
-Given IV fluid and sodium went up from 124 to 127 (appropriately going up in the timeframe of admission)
-Start fluid restriction since 07/23
-Continue salt tablets 1 g p.o. daily--> increased 1 gr TID since 07/24.
-Continue to monitor sodium
# Mild transaminitis
-Improved from previous
-Check ultrasound-fatty liver disease
-hepatitis panel negative
-Will recheck LFTs as outpatient
Melanoma
-Status post immunotherapy 4/
Paroxysmal atrial fibrillation
-Continue amiodarone
-Continue metoprolol
-Not on anticoagulation, unsure why.
Suspected sleep apnea
Essential hypertension
-Continue to hold amlodipine
Hypercholesterolemia
Type 2 diabetes
-Resume glimepiride, metformin
-Continue insulin sliding scale to increase to moderate
-Changed diet to diabetic diet yesterday.
Neuropathy
-Continue to hold gabapentin
Macular degeneration
Full code
DVT prophylaxis�heparin
Anticipated Discharge: Today
Subjective/Interval History
-
Date of Service: July 27, 2023
No new complaints. She wants to hold hands.
Objective Data
-
Labs:
Laboratory Results
07/27/23
04:03
WBC 8.6
Hgb 13.0
Hct 38.5
Plt Count 294
Sodium 128 L
Potassium 3.8
Chloride 103
Carbon Dioxide 20 L
BUN 17
Creatinine 0.8
Glucose 122 H
Calcium 8.6
Total Bilirubin 0.7
AST 48 H
ALT 80 H
Alkaline Phosphatase 93
Vital Signs:
Vital Signs
Temp Pulse Resp BP Pulse Ox
97.5 F 70 15 143/73 95
07/27/23 03:26 07/27/23 06:00 07/27/23 06:00 07/27/23 04:00 07/27/23 06:00
I&O
07/26/23 07/27/23 07/28/23
06:59 06:59 06:59
Intake Total 200 / 200 240 / 240
Balance 200 / 200 240 / 240
[2023-07-27] MEDS: NOVOLOG FLEXPEN-MODERATE RESISTANCE 1 UNITS SC (08:50)
[2023-07-27] MEDS: SODIUM CHLORIDE 1 GRAM PO (08:51)
[2023-07-27] MEDS: CEFTIN 500 MG PO (08:51)
[2023-07-27] MEDS: LOPRESSOR 25 MG PO (08:51)
[2023-07-27] MEDS: PACERONE 200 MG PO (08:51)
[2023-07-27] MEDS: AMARYL 2 MG PO (08:51)
[2023-07-27] MEDS: GLUCOPHAGE 500 MG PO (08:53)
[2023-07-27] MEDS: HEPARIN 5000 UNITS SC (08:54)
[2023-07-27] MEDS: TYLENOL 650 MG PO (09:02)
--- NOTE | 2023-07-27 10:10 | W.DCSUMMARY ---
Discharge Summary
Discharge Data
Date of Admission: 07/23/23
Date of Discharge: 07/27/23
-
Pending Results: No
Hospital Course
Patient 83 years old female with history obstructive sleep apnea, hypertension, hyperlipidemia, diabetes mellitus, paroxysmal atrial fibrillation, melanoma on immunotherapy, presented to the hospital with mental status and generalized weakness, as
well as hyponatremia and concerns for UTI. It was felt her encephalopathy was multifactorial including hyponatremia, dehydration, possible urinary tract infection, and recent treatment for her melanoma. Her CT scan of the head was unremarkable for
any acute findings. Patient was treated with IV fluids, IV antibiotics. Unfortunately she received antibiotics before any cultures were taken. Cultures remain no growth but she will complete a short course as outpatient in light of her
immunocompromise status. Her sodium improved overall but has remained relatively low so at 128-132 (it was as low as 124) and we will continue with increased salt tablets, fluid restrictions, and follow-up sodium as outpatient. Patient also had a
recent treatment for melanoma and family will discuss with her oncology if they will need to postpone the following treatment that is coming pretty soon as outpatient. Patient also had elevated liver function testing and she had ultrasound of the
abdomen that shows fatty liver disease and hepatitis screen negative. Overall her LFTs trended down and can now follow-up as outpatient. Otherwise, patient is hemodynamically stable and much improved based on her initial presentation. She is
going to be discharged in stable condition today.
Discharge duration: 35 minutes
Discharge Plan
-
Patient Disposition: Care Home/SNF
Discharge Diagnosis/Procedures: Probable urinary tract infection. Hyponatremia. Toxic metabolic encephalopathy. Elevated liver function tests. Paroxysmal atrial fibrillation. Hypertension. Hyperlipidemia. Diabetes mellitus type 2.
Diet: Low Cholesterol, Diabetic, Carb Controlled and Restrict fluids to 48 oz
Activity: As tolerated
Driving Restrictions: As prior to admission
Blood Work: Please PCP to order CBC, CMP within 1 week
Activity Restrictions/Additional Instructions:
Wound Care Instructions
R upper back: clean with soap and water, adaptic, gauze and silicone tape daily and prn drainage.
Referrals:
Derrell Mello DO [Family Provider] - in less than 1 week
Prescriptions:
New
cefuroxime axetil 500 mg Tablet
500 mg PO BID 5 Days Qty: 10 0RF
Continued
amiodarone 200 mg Tablet
200 mg PO DAILY@0830
gabapentin 100 mg Capsule
100 mg PO TID@0830,1330,1830
metoprolol tartrate 25 mg Tablet
25 mg PO BID@08,183
cyanocobalamin (vitamin B-12) 1,000 mcg Tablet
1,000 mcg PO QMONTH@0830
Rx Instructions:
07/23/2023 of month.
metformin 500 mg Tablet
500 mg PO DAILY@0830
acetaminophen [Tylenol] 325 mg Tablet
650 mg PO Q4H MDD 3000 mg PRN (Reason: mild pain/fever>100.4)
ondansetron HCl 4 mg Tablet
4 mg PO Q6H PRN (Reason: nausea/vomiting)
glimepiride 2 mg Tablet
2 mg PO DAILY@0830
lorazepam 0.5 mg Tablet
0.25 mg PO DAILYPRN PRN (Reason: 1 hr prior to transport p/u to [facility] appt.)
magnesium hydroxide [Milk of Magnesia] 400 mg/5 mL Suspension
30 ml PO HSPRN PRN (Reason: constipation)
bisacodyl 10 mg Suppository
10 mg [place] DAILY PRN (Reason: q 3 days when no BM and MOM/lactulose ineffective)
Normal Saline Flush 0.9 % solution
0 ml IV .SEE BELOW
Rx Instructions:
07/23/2023, continuous IV @75 ml/hr; check Q2H.
Changed
sodium chloride 1,000 mg Tablet,Soluble
1,000 mg PO TID Qty: 0 0RF
Discontinued
amlodipine 5 mg Tablet
5 mg PO DAILY@0830
Discharge Orders:
Discharge Patient (As Directed); Ordered 07/27/23
Ordered By: Aric Collazo
Discharge Date and Time
Discharge Date/Time: 07/27/23 12:26
Print Language: CITIZEN [place]
--- NOTE | 2023-07-27 10:23 | CM ---
Patient from [facility] with Dx Metabolic encephalopathy secondary to UTI/hyponatremia. Room air. Seen by wound care nurse. PT & OT recommend skilled rehab.
Received phone call from Debbie Barajas (ph [phone]); she requested CM provided info from MD's last progress note and clarification of IV vs oral Abx. Info [facility]
Spoke with Debbie Vicente; SNF is approved from 07-26 to 07-30, plan auth # [id number], [facility] reference # [id number]. NR 07/30 to [facility] [facility] - fax [phone].
Spoke with Mimi, [facility]; auth information provided. They are able to accept the patient back today. for report [phone], fax [phone].
Spoke with patient's daughter Maia; she agrees with her mother returning to [facility] today by ambulance. IMM done yesterday.
Plan [facility] today by ambulance.
--- NOTE | 2023-07-27 12:20 | PTCARENOTE ---
Report called to [facility] pt changed foe mod urine Acute care pickd up pt for return to [place]
== END 2023-07-27 12:26 | DRG 643 ==
LOC: IMU 20:42
PROVIDERS: Emergency Medicine; Nurse Practitioner Family; ADMITTING PHYSICIAN Hospitalist; ATTENDING PHYSICIAN Hospitalist; EMERGENCY PHYSICIAN Emergency Medicine; FAMILY PHYSICIAN Student in an Organized Health Care Education/Training Program
DX: E22.2 Syndrome of inappropriate secretion of antidiuretic hormone (principal); G92.8 Other toxic encephalopathy; N39.0 Urinary tract infection, site not specified; C43.9 Malignant melanoma of skin, unspecified; E11.40 Type 2 diabetes mellitus with diabetic neuropathy, unspecified; E78.00 Pure hypercholesterolemia, unspecified; I10 Essential (primary) hypertension; I48.0 Paroxysmal atrial fibrillation; R11.2 Nausea with vomiting, unspecified; E86.0 Dehydration; G47.33 Obstructive sleep apnea (adult) (pediatric); R74.01 Elevation of levels of liver transaminase levels; H35.30 Unspecified macular degeneration; E87.6 Hypokalemia; M17.0 Bilateral primary osteoarthritis of knee; G89.29 Other chronic pain; Z87.891 Personal history of nicotine dependence; Z79.69 Long term (current) use of other immunomodulators and immunosuppressants; Z79.84 Long term (current) use of oral hypoglycemic drugs
CPT/HCPCS: 36415; 51701; 70450; 76700; 80048; 80053; 81003; 82248; 82962; 83036; 83930; 83935; 84300; 85025; 86704; 86705; 86706; 86709; 86803; 87040; 87070; 87340; 93005; 97163; 97167; 97530; 99285

== ENCOUNTER → 2023-08-01 11:06 | Outpatient (REF) | payer OTHER, SELFPAY ==
[2023-08-01 13:12] LABS: Blood Urea Nitrogen 13 mg/dl (7-17); Calcium 8.6 mg/dl (8.4-10.2); Carbon Dioxide 22 mmol/L (22-30); Chloride 103 mmol/L (98-107); Glucose 157 mg/dl (70-99); Potassium 3.9 mmol/L (3.5-5.1); Sodium 131 mmol/L (135-145); eGFR > 60.00
[2023-08-01 13:35] LABS: Glycohemoglobin (HgbA1c) 8.3 % (4.0-5.6)
== END ==
LOC: OLABN 11:06
PROVIDERS: ATTENDING PHYSICIAN Student in an Organized Health Care Education/Training Program
DX: E11.9 Type 2 diabetes mellitus without complications (principal)
CPT/HCPCS: 36415; 80048; 83036

== ENCOUNTER → 2023-08-07 09:53 | Outpatient (REF) | payer OTHER, SELFPAY ==
[2023-08-07 11:08] LABS: ALT (SGPT) 69 U/L (0-35); AST (SGOT) 46 U/L (14-36); Albumin 3.1 g/dl (3.5-5.0); Alkaline Phosphatase 90 U/L (38-126); Direct Bilirubin 0.3 mg/dl (0.0-0.4); Total Bilirubin 0.5 mg/dl (0.2-1.3); Total Protein 6.3 g/dl (6.3-8.2)
== END ==
LOC: OLABN 09:53
PROVIDERS: ATTENDING PHYSICIAN Student in an Organized Health Care Education/Training Program
DX: C43.9 Malignant melanoma of skin, unspecified (principal)
CPT/HCPCS: 36415; 80076

== ENCOUNTER → 2023-08-31 10:10 | Outpatient (REF) | payer OTHER, SELFPAY ==
[2023-08-31 12:01] LABS: ALT (SGPT) 49 U/L (0-35); AST (SGOT) 50 U/L (14-36); Albumin 3.2 g/dl (3.5-5.0); Alkaline Phosphatase 95 U/L (38-126); Blood Urea Nitrogen 10 mg/dl (7-17); Calcium 8.4 mg/dl (8.4-10.2); Carbon Dioxide 24 mmol/L (22-30); Chloride 104 mmol/L (98-107); Glucose 102 mg/dl (70-99); Magnesium 1.8 mg/dl (1.6-2.3); Potassium 4.5 mmol/L (3.5-5.1); Sodium 135 mmol/L (135-145); Total Bilirubin 0.5 mg/dl (0.2-1.3); Total Protein 6.7 g/dl (6.3-8.2); eGFR > 60.00
== END ==
LOC: OLABN 10:10
PROVIDERS: ATTENDING PHYSICIAN Student in an Organized Health Care Education/Training Program
DX: E87.1 Hypo-osmolality and hyponatremia (principal)
CPT/HCPCS: 36415; 80053; 83735

== ENCOUNTER → 2023-09-05 09:51 | Outpatient (REF) | payer OTHER, SELFPAY ==
[2023-09-05 10:15] LABS: Urine Albumin Trace (Neg - Trace); Urine Bilirubin 1+ (Negative); Urine Character Very Cloudy (Clear); Urine Color Yellow; Urine Glucose Negative (Negative); Urine Ketone Negative (Negative); Urine Leukocyte 2+ (Negative); Urine Nitrite Negative (Negative); Urine Occult Blood Negative (Negative); Urine Urobilinogen Negative (Neg - 1+)
[2023-09-05 12:10] LABS: Urine Squamous Cell 26-30 /LPF (Few)
[2023-09-05 12:11] LABS: Urine Amorphous Seen
[2023-09-05 12:12] LABS: Urine Bacteria Moderate (Negative)
== END ==
LOC: OLABN 09:51
PROVIDERS: ATTENDING PHYSICIAN Student in an Organized Health Care Education/Training Program
DX: N39.0 Urinary tract infection, site not specified (principal)
CPT/HCPCS: 81003; 81015; 87086

== ENCOUNTER → 2023-09-06 10:12 | Outpatient (REF) | payer OTHER, SELFPAY ==
[2023-09-06 11:35] LABS: ALT (SGPT) 81 U/L (0-35); AST (SGOT) 81 U/L (14-36); Albumin 3.4 g/dl (3.5-5.0); Alkaline Phosphatase 81 U/L (38-126); Blood Urea Nitrogen 10 mg/dl (7-17); Calcium 8.7 mg/dl (8.4-10.2); Carbon Dioxide 23 mmol/L (22-30); Chloride 102 mmol/L (98-107); Glucose 83 mg/dl (70-99); Magnesium 1.6 mg/dl (1.6-2.3); Potassium 4.2 mmol/L (3.5-5.1); Sodium 136 mmol/L (135-145); Total Bilirubin 0.8 mg/dl (0.2-1.3); Total Protein 6.9 g/dl (6.3-8.2); eGFR > 60.00
[2023-09-06 11:57] LABS: % Basophils 0.9 % (0-2); % Eosinophils 2.3 % (0-6); % Lymphocytes 28.5 % (20.5-51.1); % Monocytes 12.3 % (1.7-9.3); Absolute Basophils 0.1 10^3/uL (0-0.2); Absolute Eosinophils 0.2 10^3/uL (0-0.7); Absolute Immature Granulocytes 0.1 10^3/uL (0-0.05); Absolute Monocytes 1.3 10^3/uL (0.1-0.6); Absolute Neutrophils 5.7 10^3/uL (1.4-6.5); Hematocrit 38.7 % (37.0-47.0); Hemoglobin 13.2 g/dL (12.0-16.0); Mean Corp Hgb Conc. 34.1 g/dL (33.0-37.0); Mean Corpuscular Hgb 27.5 pg (27.0-31.0); Mean Corpuscular Volume 80.6 fL (81.0-99.0); Mean Platelet Volume 8.9 fL (7.4-10.4); Nucleated Red Blood Cells % 0 %; Platelet Count 352 10^3/uL (130-400); Red Cell Dist. Width 16.7 % (11.5-14.5); White Blood Cell Count 10.4 10^3/uL (4.8-10.8)
== END ==
LOC: OLABN 10:12
PROVIDERS: ATTENDING PHYSICIAN Student in an Organized Health Care Education/Training Program
DX: E87.1 Hypo-osmolality and hyponatremia (principal)
CPT/HCPCS: 36415; 80053; 83735; 85025

== ENCOUNTER → 2023-09-13 10:07 | Outpatient (REF) | payer OTHER, SELFPAY ==
[2023-09-13 12:52] LABS: Glycohemoglobin (HgbA1c) 6.7 % (4.0-5.6)
[2023-09-13 13:06] LABS: % Basophils 0.6 % (0-2); % Eosinophils 1.6 % (0-6); % Immature Granulocytes 0.7 % (0-0.5); % Lymphocytes 18.5 % (20.5-51.1); % Monocytes 10.4 % (1.7-9.3); % Neutrophils 68.2 % (42.2-75.2); Absolute Basophils 0.1 10^3/uL (0-0.2); Absolute Eosinophils 0.2 10^3/uL (0-0.7); Absolute Immature Granulocytes 0.1 10^3/uL (0-0.05); Absolute Lymphocytes 2.5 10^3/uL (1.2-3.4); Absolute Monocytes 1.4 10^3/uL (0.1-0.6); Absolute Neutrophils 9.2 10^3/uL (1.4-6.5); Hematocrit 40.8 % (37.0-47.0); Hemoglobin 13.7 g/dL (12.0-16.0); Mean Corp Hgb Conc. 33.6 g/dL (33.0-37.0); Mean Corpuscular Hgb 27.3 pg (27.0-31.0); Mean Corpuscular Volume 81.3 fL (81.0-99.0); Mean Platelet Volume 9.6 fL (7.4-10.4); Nucleated Red Blood Cells % 0 %; Platelet Count 302 10^3/uL (130-400); Red Blood Cell Count 5.02 10^6/uL (4.20-5.40); Red Cell Dist. Width 16.7 % (11.5-14.5); White Blood Cell Count 13.5 10^3/uL (4.8-10.8)
== END ==
LOC: OLABN 10:07
PROVIDERS: ATTENDING PHYSICIAN Student in an Organized Health Care Education/Training Program
DX: E16.2 Hypoglycemia, unspecified (principal)
CPT/HCPCS: 36415; 83036; 85025

== ENCOUNTER → 2023-09-14 10:31 | Outpatient (REF) | payer OTHER, SELFPAY ==
[2023-09-14 12:43] LABS: Blood Urea Nitrogen 12 mg/dl (7-17); Calcium 8.7 mg/dl (8.4-10.2); Carbon Dioxide 28 mmol/L (22-30); Chloride 98 mmol/L (98-107); Glucose 163 mg/dl (70-99); Potassium 4.7 mmol/L (3.5-5.1); Sodium 133 mmol/L (135-145); eGFR > 60.00
== END ==
LOC: OLABN 10:31
PROVIDERS: ATTENDING PHYSICIAN Student in an Organized Health Care Education/Training Program
DX: E16.2 Hypoglycemia, unspecified (principal)
CPT/HCPCS: 36415; 80048

== ENCOUNTER → 2023-09-15 09:39 | Outpatient (REF) | payer OTHER, SELFPAY ==
[2023-09-15 10:56] LABS: Urine Albumin Negative (Neg - Trace); Urine Bilirubin Negative (Negative); Urine Character Slightly Cloudy (Clear); Urine Color Yellow; Urine Glucose 1+ (Negative); Urine Ketone Negative (Negative); Urine Leukocyte 2+ (Negative); Urine Nitrite Negative (Negative); Urine Occult Blood Negative (Negative); Urine Urobilinogen Negative (Neg - 1+)
[2023-09-15 11:14] LABS: Urine Red Blood Cell 0-2 /HPF (0-2); Urine Squamous Cell >30 /LPF (Few)
[2023-09-15 11:15] LABS: Urine Bacteria Few (Negative); Urine White Cell 21-25 /HPF (0-5)
== END ==
LOC: OLAB 09:39
PROVIDERS: ATTENDING PHYSICIAN Student in an Organized Health Care Education/Training Program
DX: R35.0 Frequency of micturition (principal)
CPT/HCPCS: 36415; 81003; 81015; 87077; 87086; 87088; 87186

== ENCOUNTER → 2023-09-19 11:10 | Outpatient (REF) | payer OTHER, SELFPAY ==
[2023-09-19 13:42] LABS: % Basophils 1.2 % (0-2); % Eosinophils 3.3 % (0-6); % Immature Granulocytes 0.5 % (0-0.5); % Lymphocytes 25.9 % (20.5-51.1); % Monocytes 13.7 % (1.7-9.3); % Neutrophils 55.4 % (42.2-75.2); Absolute Basophils 0.1 10^3/uL (0-0.2); Absolute Eosinophils 0.3 10^3/uL (0-0.7); Absolute Immature Granulocytes 0.1 10^3/uL (0-0.05); Absolute Lymphocytes 2.4 10^3/uL (1.2-3.4); Absolute Monocytes 1.3 10^3/uL (0.1-0.6); Absolute Neutrophils 5.2 10^3/uL (1.4-6.5); Mean Corp Hgb Conc. 34.2 g/dL (33.0-37.0); Mean Corpuscular Hgb 27.7 pg (27.0-31.0); Mean Corpuscular Volume 80.9 fL (81.0-99.0); Mean Platelet Volume 9.1 fL (7.4-10.4); Nucleated Red Blood Cells % 0 %; Platelet Count 280 10^3/uL (130-400); Red Cell Dist. Width 16.7 % (11.5-14.5); White Blood Cell Count 9.3 10^3/uL (4.8-10.8)
[2023-09-20 10:21] LABS: Glycohemoglobin (HgbA1c) 6.8 % (4.0-5.6)
== END ==
LOC: OLABN 11:10
PROVIDERS: ATTENDING PHYSICIAN Student in an Organized Health Care Education/Training Program
DX: E11.9 Type 2 diabetes mellitus without complications (principal)
CPT/HCPCS: 36415; 83036; 85025

== ENCOUNTER → 2023-10-11 11:09 | Outpatient (REF) | payer OTHER, SELFPAY ==
[2023-10-11 12:11] LABS: Blood Urea Nitrogen 32 mg/dl (7-17); Calcium 8.7 mg/dl (8.4-10.2); Carbon Dioxide 20 mmol/L (22-30); Chloride 114 mmol/L (98-107); Glucose 294 mg/dl (70-99); Sodium 144 mmol/L (135-145); eGFR > 60.00
== END ==
LOC: OLABN 11:09
PROVIDERS: ATTENDING PHYSICIAN Student in an Organized Health Care Education/Training Program
DX: E87.6 Hypokalemia (principal)
CPT/HCPCS: 36415; 80048

== ENCOUNTER 2023-10-12 15:18 | Inpatient (IN) | payer OTHER, SELFPAY ==
[2023-10-12] VITALS (10 sets, daily range): BP systolic 101–154; BP diastolic 48–63
[2023-10-12 12:14] LABS: % Basophils 0.4 % (0-2); % Immature Granulocytes 0.8 % (0-0.5); % Lymphocytes 5.6 % (20.5-51.1); % Monocytes 6.3 % (1.7-9.3); % Neutrophils 86.9 % (42.2-75.2); Absolute Basophils 0.1 10^3/uL (0-0.2); Absolute Immature Granulocytes 0.2 10^3/uL (0-0.05); Absolute Lymphocytes 1.3 10^3/uL (1.2-3.4); Absolute Monocytes 1.4 10^3/uL (0.1-0.6); Absolute Neutrophils 19.4 10^3/uL (1.4-6.5); Hematocrit 43.6 % (37.0-47.0); Hemoglobin 14.6 g/dL (12.0-16.0); Mean Corp Hgb Conc. 33.5 g/dL (33.0-37.0); Mean Corpuscular Volume 83.7 fL (81.0-99.0); Nucleated Red Blood Cells % 0 %; Platelet Count 311 10^3/uL (130-400); Red Blood Cell Count 5.21 10^6/uL (4.20-5.40); White Blood Cell Count 22.4 10^3/uL (4.8-10.8)
[2023-10-12 12:24] LABS: ALT (SGPT) 55 U/L (0-35); AST (SGOT) 49 U/L (14-36); Albumin 3.2 g/dl (3.5-5.0); Alkaline Phosphatase 147 U/L (38-126); Blood Urea Nitrogen 32 mg/dl (7-17); Calcium 8.9 mg/dl (8.4-10.2); Carbon Dioxide 21 mmol/L (22-30); Chloride 110 mmol/L (98-107); Glucose 379 mg/dl (70-99); Lactic Acid 2.2 mmol/L (0.7-2.0); Potassium 4.7 mmol/L (3.5-5.1); Sodium 140 mmol/L (135-145); Total Protein 6.6 g/dl (6.3-8.2); eGFR > 60.00
--- NOTE | 2023-10-12 12:33 | ED.GENMED ---
History of Present Illness
General
Chief Complaint: Change in Mental Status
Source: patient
Exam Limitations: none
Time Seen by Provider: 10/12/23 12:05
Nursing documentation reviewed up to this point in time: agreed with
History of Present Illness
History of Present Illness:
83 Y/O F with h/o afib, htn, hld, pacer
here with change in mental status
usually pretty alert and oriented acording to RN at [facility] whome i spoke with
slow change in mental status over 1-2 weeks maybe
h/o melanoma on immunotherapy and has been slowly declining
DNR
but in the past few days, new cough, sleeping more, not making sense, not eating/drinking, not her usual self
possible UTI, has had int he past
no fever
Past History
Past History
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
ED Past Surgical History: None
Social History
Tobacco: Former smoker
Alcohol: None
Drug: None
Personal: Single
Living: alone
Employment: Retired
Family History
Family History: Other (Noncontributory)
Review of Systems
Review of Systems
Allergies reviewed?: Yes
Unable to obtain full review of systems at this time due to: dementia
All Other Systems: Not applicable
Phy Exam
Physical Exam
Physical Exam:
GENERAL: awake, speech difficult to understand, very dry mouth;
EYE: pupils equal and reactive
NECK: Supple
ENT: pharynx erythematous, some exudate in the throat and thick mucus
CARDIAC: Regular rate and rhythm .
LUNGS: dimisniedh upper breath sounds rhonchi, no acute respiratory distress, no wheezes/rales/rhonchi
ABDOMEN: Soft, without focal tenderness, no r/g, no cvat, normal bowel sounds
NEUROLOGICAL: Alert and oriented x 1; moving extremiteis; weak genralized
SKIN: Warm and dry, skin intact.
MUSCULOSKELETAL: No edema, well perfused. neg olga's sign
PSYCH: Normal and appropriate interaction.
Course
Orders/Labs/Results
Orders:
Orders
10/12/23 Breakfast
NPO
Allow oral meds: No
Allow clear liquids: No
10/12/23 11:45
Electrocardiogram (*1) Urgent
Reason for Study: Fatigue / Weakness
10/12/23 11:46
EKG- Treatment ONCE
10/12/23 11:50
Complete Blood Count/With Diff Urgent
Comprehensive Metabolic Panel Urgent
Lactic Acid Urgent
Monotest Urgent
Comment: MONO ADDED ON BY FLOOR 12:30PM 10-12-23
Urinalysis Reflex To Culture Urgent
Date Specimen was Collected: 10/12/23
Time Specimen was Collected: 11:47
Urine Microscopic Reflex Cult Urgent
Urine Culture Urgent
JOSE Source: U
Specimen Description:
Date Specimen was Collected: 10/12/23
Time Specimen was Collected: 11:47
10/12/23 12:31
Add On- LAB Urgent
Tests Added?: MONO
10/12/23 12:32
0.9% Sodium Chloride 1000 ml [Nss] 1,000 ml IV BOLUS
10/12/23 12:37
Rapid Strep Group A Urgent
JOSE Source: Throat/Pharynx
Specimen Description:
Date Specimen was Collected: 10/12/23
Time Specimen was Collected: 12:32
10/12/23 12:39
COVID-19 Antigen Urgent
Source: Nasal Swab
Influenza A+B Rapid Molecular Urgent
JOSE Source: Nasal Swab
Specimen Description:
10/12/23 12:59
Piperacillin/Tazo 3.375 Gram [Zosyn] 3.375 gram in 50 ml IV NOW
10/12/23 13:18
CR Chest Portable - 1 View Urgent
Comment:
Reason For Exam: cough, ams
Reason Study Needs to be Portable: Unable to Transport
10/12/23 14:31
Admit/Transfer Patient As Directed
Co-Sign Provider:
Level of Care: Inpatient admission
Assign to:: Telemetry
Physician / Group: jennifer garcía
Diagnosis: sepsis
Reason for Telemetry: Arrhythmia
Date to Stop Telemetry: 10/15/23
Time to Stop Telemetry: 11:00
Reason for Hospitalization: sepsis
Expected length of stay greater than two midnights?: Yes
ELOS- Estimated Length of Stay in days: 3
I certify the patient meets the requirements for IP care: Yes
10/12/23 14:32
Code Status As Directed
Resuscitation Status: Do not resuscitate
Reached after discussion with pt or family/Healthcare POA: Yes
10/12/23 14:33
DNR Bracelet Application ONCE
10/12/23 18:02
Lactic Acid Q4H
Comment: repeat q4 hours x 4 or until less than 2 mmol/L
0.9% Sodium Chloride 1000 ml [Nss] 1,000 ml IV 80 mls/hr
Dextrose 50%-Water [Dextrose 50% Syringe] 12.5 grams IV [id number] PRN
Enoxaparin Sodium [Lovenox] 40 mg SC QPM
Glucagon [GlucaGen] 1 mg IM PRN PRN
Insulin Aspart Corrective Mod [Novolog Flexpen-Moderate Resistance] See Protocol SC AC
10/12/23 18:02
Activity As Directed
Activity Level: As Tolerated
Bedside Glucose Monitoring As Directed
Frequency: Q6H
Additional Instructions:: Change to q6h if pt on TPN, tube feeding or not eating
Intake/ Output As Directed
Frequency: Per unit guidelines
Vital Signs As Directed
Frequency: Per unit guidelines
Speech Therapy Eval & Treat Routine
DX Deep Vein Thrombosis Video Routine
10/12/23 20:00
Piperacillin/Tazo 3.375 Gram [Zosyn] 3.375 gram in 50 ml IV Q6H
10/12/23 22:02
Lactic Acid Q4H
Comment: repeat q4 hours x 4 or until less than 2 mmol/L
10/13/23 02:02
Lactic Acid Q4H
Comment: repeat q4 hours x 4 or until less than 2 mmol/L
10/13/23 06:00
Complete Blood Count/No Diff IN AM
Comprehensive Metabolic Panel IN AM
Glycohemoglobin (HgbA1c) IN AM
10/14/23 06:00
Complete Blood Count/No Diff IN AM
Comprehensive Metabolic Panel IN AM
10/15/23 06:00
Complete Blood Count/No Diff IN AM
Comprehensive Metabolic Panel IN AM
10/15/23 11:00
DC Protocol for Telemetry ONCE
10/16/23 06:00
Complete Blood Count/No Diff IN AM
Comprehensive Metabolic Panel IN AM
10/17/23 06:00
Complete Blood Count/No Diff IN AM
Comprehensive Metabolic Panel IN AM
Abnormal Lab Results
10/12/23
11:50
WBC 22.4 H 10^3/uL
(4.8-10.8)
RDW 18.0 H %
(11.5-14.5)
Abs Immat Gran (auto) 0.2 H 10^3/uL
(0-0.05)
Absolute Neuts (auto) 19.4 H 10^3/uL
(1.4-6.5)
Absolute Monos (auto) 1.4 H 10^3/uL
(0.1-0.6)
Immature Gran % 0.8 H %
(0-0.5)
Neutrophils % 86.9 H %
(42.2-75.2)
Lymphocytes % 5.6 L %
(20.5-51.1)
Chloride 110 H mmol/L
(98-107)
Carbon Dioxide 21 L mmol/L
(22-30)
BUN 32 H mg/dl
(7-17)
Glucose 379 H mg/dl
(70-99)
Lactic Acid 2.2 H mmol/L
(0.7-2.0)
AST 49 H U/L
(14-36)
ALT 55 H U/L
(0-35)
Alkaline Phosphatase 147 H U/L
(38-126)
Albumin 3.2 L g/dl
(3.5-5.0)
Ur Occult Blood Reflex Trace A
(Negative)
Urine Nitrite (Reflex) Positive A
(Negative)
Leukocyte Esterase Rfl 2+ A
(Negative)
Urine WBC (Reflex) 26-30 A /HPF
(0-5)
Urine Bacteria (Reflex) Many A
(Negative)
Urine Glucose 3+ A
(Negative)
Monoscreen Positive A
(Negative)
10/12/23 11:50
10/12/23 11:50
Vital Signs
Initial and Last Documented VS:
Initial Vital Signs
Pulse Resp Pulse Ox
77 20 95
10/12/23 11:46 10/12/23 11:46 10/12/23 11:46
Last Documented Vital Signs
Temp Pulse Resp BP Pulse Ox
97.9 F 76 18 136/59 96
10/12/23 11:47 10/12/23 17:45 10/12/23 17:45 10/12/23 17:00 10/12/23 17:30
MDM/Problems Addressed
Differential Diagnosis Includes:
uti, uro sepsis, dehydration, pneumonia, covid
MDM/Problems Addressed:
83 y/o F from [place], melanoma on immunetherpay/compromised; htn, hld
usually a&ox2
grdual decline over a week or two, not eating, not acting herself, sleeping more, wet cough, no fever
afebrile, normotensive, upper airway sounds, rhonchi no wheezing; MM extremely dry; wbc 22, urine + previous resistance
zosyn;
cxr clera
will continue with iv abx and ivf
*Critical Care Note
Total Time (30-74mins, 75-104mins- exclusive of procedures): Not Applicable
ED Attending Note
-
Portions of this chart may have been created with voice recognition software.� Occasional wrong word or��sound alike� substitutions may have occurred due to the inherent limitations of voice recognition software.
Discharge Plan
Departure
Patient Disposition: Admit
Date of Disposition: 10/12/23
Time of Disposition: 13:48
Admit to: Med/Surg
Presentation/result/management discussed w/ accepting MD/DO: Hospitalist
Condition: Fair
Covid-19: Not Applicable
Discharge Problem:
Sepsis, UTI (urinary tract infection)
Interventions
Interventions:
*Risk Screen - Suicide Last Done: 10/12/23 11:47
*General Assessment Last Done: 10/12/23 11:47
*Neglect/Abuse Screening Last Done: 10/12/23 11:47
*Nursing Disposition Last Done: 10/12/23 17:55
ED- Pulmonary Assessment Last Done: 10/12/23 12:27
ED- Neurological Assessment Last Done: 10/12/23 12:27
ED- Cardiac Assessment Last Done: 10/12/23 12:27
ED Swallowing Screen Last Done: 10/12/23 12:30
Discharge Date and Time
Discharge Date/Time: 10/12/23 17:55
[2023-10-12 12:34] LABS: Urine Albumin Trace (Neg - Trace); Urine Bilirubin Negative (Negative); Urine Character Slightly Cloudy (Clear); Urine Color Yellow; Urine Glucose 3+ (Negative); Urine Ketone Negative (Negative); Urine Leukocyte 2+ (Negative); Urine Nitrite Positive (Negative); Urine Occult Blood Trace (Negative); Urine Specific Gravity 1.015 (<1.030); Urine Urobilinogen Negative (Neg - 1+)
[2023-10-12] MEDS: NSS 1000 IV ×2 (12:37→18:35)
[2023-10-12 12:51] LABS: Urine Red Blood Cell 0-2 /HPF (0-2)
[2023-10-12 12:52] LABS: Urine Bacteria Many (Negative); Urine White Cell 26-30 /HPF (0-5)
[2023-10-12] MEDS: ZOSYN 50 IV ×2 (13:04→19:36)
[2023-10-12 13:12] LABS: COVID-19 Antigen Negative (Negative)
--- NOTE | 2023-10-12 14:11 | HPS.HSE ---
Family Physician
-
Family Physician: Derrell Mello DO
Chief Complaint
-
lethargic
History of Present Illness
83 Y/O F with h/o afib, htn, hld, pacer here with change in mental status. as per ER physician, patient sleeping more than usual. at present patient is lethargic. not able to answer appropriately.
upon arrival, patient is lethargic, UA positive. initiated on Zosyn. admitting for further management.
Medical History
Past Medical History
Past Medical History: Reports Other
Additional Past Medical History:
Atrial fib
Type 2 diabetes
Hypertension
Hyperlipidemia
cardiac murmur
Macular degeneration
Past Surgical History: Reports None
Social History
Unable to obtain full social history at this time due to: Dementia
Family History
Family History: Not pertinent
Allergies / Home Medications
Allergies reflects when Allergies were last updated in [employer].
Home Medications with original date entered in [employer]
Allergy/Medication List:
Allergies
Allergy/AdvReac Type Severity Reaction Status Date / Time
No Known Allergies Allergy Verified 12/04/22 00:19
Home Medications
amiodarone 200 mg tablet 200 mg PO DAILY Heart Disease/Condition 12/04/22
cyanocobalamin (vitamin B-12) 1,000 mcg tablet 1,000 mcg PO QMONTH Supplement 12/04/22
gabapentin 100 mg capsule 100 mg PO TID Pain 12/04/22
metoprolol tartrate 25 mg tablet 25 mg PO BID Heart Disease/Condition 12/04/22
acetaminophen 325 mg tablet (Tylenol) 650 mg PO Q4H PRN mild pain/fever>100.4 07/23/23
bisacodyl 10 mg rectal suppository 10 mg IN DAILYPRN PRN 3 days no bm, mom and lac ineffective 07/23/23
lorazepam 0.5 mg tablet 0.25 mg PO [id number] PRN anxiety 07/23/23
magnesium hydroxide 400 mg/5 mL oral suspension (Milk of Magnesia) 30 ml PO HSPRN PRN constipation 07/23/23
metformin 500 mg tablet 500 mg PO DAILY Diabetes 07/23/23
ondansetron HCl 4 mg tablet 4 mg PO Q6HPRN PRN nausea/vomiting 07/23/23
sodium chloride 1,000 mg soluble tablet 1,000 mg PO TID Electrolyte Repletion #0 tabs 07/26/23
lidocaine 4 % topical patch 1 patch topical DAILY lower back 10/12/23
mirtazapine 7.5 mg tablet 7.5 mg PO DAILY 10/12/23
potassium chloride 20 mEq tablet,extended release 20 meq PO BID 10/12/23
Review of Systems
-
Unable to obtain full review of systems at this time due to: Acuity
Physical Exam
Vital Signs
Vital Signs
Temp Pulse Resp BP Pulse Ox
97.9 F 67 20 135/55 96
10/12/23 11:47 10/12/23 12:45 10/12/23 12:45 10/12/23 12:00 10/12/23 12:45
Physical Exam
General: Well Developed, Well Nourished and No Apparent Distress
HEENT: NormoCephalic, Moist mucous membranes and Atraumatic
Respiratory: Rhonchi and Decreased Breath Sounds
Cardiac: S1/S2 and Regular Rhythm; No Murmur or Rub
GI: Soft, Non Tender, Non Distended and Normal Bowel Sounds; No Organomegaly
Rectal: Deferred by Provider
Musculoskeletal: No Clubbing, No Cyanosis and No Edema
Skin: No Rash
Neuro: Nonfocal/grossly intact
Psych: Calm
Laboratory Results
-
10/12/23 11:50
10/12/23 11:50
Laboratory Results
Lactic Acid 2.2 mmol/L (0.7-2.0) H 10/12/23 11:50
Total Bilirubin 1.0 mg/dl (0.2-1.3) 10/12/23 11:50
AST 49 U/L (14-36) H 10/12/23 11:50
ALT 55 U/L (0-35) H 10/12/23 11:50
Alkaline Phosphatase 147 U/L (38-126) H 10/12/23 11:50
Data Reviewed
-
Lab Data: Labs Reviewed by me
Impression/Plan
-
# Lethargic/metabolic encephalopathy likely from urinary tract infection
# Sepsis as evident by WBCs 22.4, lactic 2.2
-Chest x-ray pending
-COVID, influenza A&B negative
-Rapid strep negative
-History of Klebsiella pneumonia, Enterococcus facialis
-Zosyn continued
-trend lactic
-curve wbc
# Type 2 diabetes with hyperglycemia
-Blood sugar elevated in 300s
-Sliding scale
-Hold metformin
-N.p.o. until fully awake
-Speech consulted
# Chronic LFT elevation
-AST 49, ALT 55, ALK 147
-Trend LFTs
#Paroxysmal atrial fibrillation
-Hold amiodarone, metoprolol until fully awake
-Heart rate controlled
-EKG with normal sinus rhythm
#Neuropathy
-Continue to hold gabapentin
-Continue to hold lidocaine
# Anxiety hold lorazepam
#Macular degeneration
# DVT prophylaxis
-Lovenox subcu
#CODE STATUS
-DNR
[2023-10-12 15:29] LABS: Monotest Positive (Negative)
--- NOTE | 2023-10-12 16:03 | W.PN.UPDATE ---
Update Note
Progress Note Update
This is an update note to H&P written by MANAGER CHANNEL Therese Arguello
I saw and examined the patient.
The MANAGER CHANNEL's note was reviewed and I agree with the note.
Comment:
Ms. Kaz Booth is a 83 yo woman with hx HTN, HLD, DM, paroxysmal afib, melanoma on immunotherapy presents to the ER from care home with lethargy. Upon arrival patient found to be lethargic, triage vitals stable, labs with WBC 22.4,
normal renal function, glucose 379. Lactate 2.2, UA with inflammation.
On exam patient opens eyes to voice and answers simple questions but simple drifts back to sleep. Lungs clear, no wheezing, abdomen benign, no LE swelling.
Patient will be admitted for TME 2/2 sepsis most likely 2/2 UTI. Will continue IV Zosyn. IVF. with current lethargy hold oral meds, ST/PT/OT.
[2023-10-12] MEDS: LIDOCAINE 4% PATCH 1 PATCH TOPICAL (18:37)
[2023-10-12] MEDS: LOVENOX 40 MG SC (18:38)
[2023-10-12 18:43] LABS: Glucose - Point of Care 219 mg/dl (70-99)
--- NOTE | 2023-10-12 19:30 | PTCARENOTE ---
Pt. admitted to floor from E.D., lethargic but arousable, vs stable, 97% RA, A-paced on monitor, bed alarm intact, call deluna within reach.
[2023-10-12] MEDS: NOVOLOG FLEXPEN-MODERATE RESISTANCE SC (19:33)
[2023-10-12 21:26] LABS: Glucose - Point of Care 170 mg/dl (70-99)
--- NOTE | 2023-10-13 00:30 | PTCARENOTE ---
Pt. gurgling and trying to cough up mucus, suctioned pt. several times bringing up thick white sputem with yankauer suction, pt. sounded clearer afterwards but would have to be suctioned several more times.
[2023-10-13 01:28] LABS: Lactic Acid 1.8 mmol/L (0.7-2.0)
[2023-10-13] MEDS: ZOSYN 50 IV ×4 (02:30→20:20)
[2023-10-13 03:20] VITALS: BP 123/82
[2023-10-13 06:25] LABS: Glucose - Point of Care 194 mg/dl (70-99)
[2023-10-13 07:44] VITALS: BP 130/50
[2023-10-13 08:15] LABS: ALT (SGPT) 37 U/L (0-35); AST (SGOT) 32 U/L (14-36); Albumin 2.4 g/dl (3.5-5.0); Alkaline Phosphatase 105 U/L (38-126); Blood Urea Nitrogen 23 mg/dl (7-17); Calcium 8.1 mg/dl (8.4-10.2); Carbon Dioxide 20 mmol/L (22-30); Chloride 116 mmol/L (98-107); Estimated Creatinine Clearance 57 ml/min; Glucose 192 mg/dl (70-99); Potassium 3.3 mmol/L (3.5-5.1); Sodium 144 mmol/L (135-145); Total Bilirubin 0.8 mg/dl (0.2-1.3); Total Protein 5.3 g/dl (6.3-8.2); eGFR > 60.00
[2023-10-13 08:19] LABS: Hematocrit 34.4 % (37.0-47.0); Hemoglobin 11.9 g/dL (12.0-16.0); Mean Corp Hgb Conc. 34.6 g/dL (33.0-37.0); Mean Corpuscular Hgb 28.3 pg (27.0-31.0); Mean Corpuscular Volume 81.9 fL (81.0-99.0); Mean Platelet Volume 10.3 fL (7.4-10.4); Platelet Count 268 10^3/uL (130-400); Red Cell Dist. Width 17.4 % (11.5-14.5); White Blood Cell Count 16.1 10^3/uL (4.8-10.8)
[2023-10-13] MEDS: NOVOLOG FLEXPEN-MODERATE RESISTANCE 1 UNITS SC ×2 (08:45→12:08)
[2023-10-13] MEDS: LIDOCAINE 4% PATCH 1 PATCH TOPICAL (08:45)
[2023-10-13] MEDS: NSS 1000 IV (08:46)
--- NOTE | 2023-10-13 11:42 | PTOTSP ---
ST Consult
Received and appreciate MANAGER OPERATIONS RESEARCH consultation. Pt seen at bedside with an active, weak, wet, congested, and continuous cough. Pt unable to expectorate secretions. MANAGER OPERATIONS RESEARCH attempted to suction oropharyngeal cavity, pt adamantly refusing. Copious secretions
noted in suctioning canister (~350cc) having been suctioned since pt arrived (presumably). Attempted to interact with pt, but pt with minimal, undescernable vocalizations and quickly falling back to sleep.
Pt deemed not appropriate for an evaluation at this time. Will try to f/u again later today and/or tomorrow. Recommend STRICT NPO (including meds) and repeat CXR. Continue with the utmost aspiration precautions.
[2023-10-13 11:55] VITALS: BP 105/50
[2023-10-13] MEDS: KCL 270 MEQ IV (12:03)
--- NOTE | 2023-10-13 12:04 | W.PN.HOSP.TC ---
Today's Communication/Plan
-
IV Zosyn
IV Fluids
keep NPO per ST
Assessment / Plan
Assessment / Plan
Ms. Kaz Booth is a 83 yo woman with hx HTN, HLD, DM, paroxysmal afib, melanoma on immunotherapy [facility] the ER [facility] with lethargy. Upon arrival patient found to be lethargic, triage vitals stable, labs with WBC 22.4,
normal renal function, glucose 379. Lactate 2.2, UA with inflammation.
Urosepsis
TME 2/2 sepsis
Severe sepsis
-COVID, influenza A&B negative
-Rapid strep negative
-History of Klebsiella pneumonia, Enterococcus facialis in urine
-continue IV Zosyn
-lactic acidosis cleared
-IVF
-patient remains NPO per speech, mentation improving today - monitor daily
# Type 2 diabetes with hyperglycemia
-Blood sugar elevated in 300s
-Sliding scale
-Hold metformin
-N.p.o. until fully awake
-Speech consulted
# Chronic LFT elevation
-AST 49, ALT 55, ALK 147
-Trend LFTs
#Paroxysmal atrial fibrillation
-resume home medications when able to take PO
-Heart rate controlled
-EKG with normal sinus rhythm
#Neuropathy
-Continue to hold gabapentin
-resume Lidocaine patch
# Anxiety hold lorazepam
#Macular degeneration
# DVT prophylaxis - lovenox subQ
#CODE STATUS
-DNR
Anticipated Discharge: 24 - 48 hours
Subjective/Interval History
-
Date of Service: October 13, 2023
more alert today
wants to drink, not cleared by ST
Objective Data
-
Labs:
Laboratory Results
10/13/23
07:02
WBC 16.1 H
Hgb 11.9 L
Hct 34.4 L
Plt Count 268
Sodium 144
Potassium 3.3 L D
Chloride 116 H
Carbon Dioxide 20 L
BUN 23 H
Creatinine 0.7
Glucose 192 H
Calcium 8.1 L
Total Bilirubin 0.8
AST 32
ALT 37 H
Alkaline Phosphatase 105
Vital Signs:
Vital Signs
Temp Pulse Resp BP Pulse Ox
98.2 F 67 16 105/50 93
10/13/23 11:55 10/13/23 11:55 10/13/23 11:55 10/13/23 11:55 10/13/23 11:55
I&O
10/12/23 10/13/23 10/14/23
06:59 06:59 06:59
Intake Total 800 / 800
Balance 800 / 800
Review of Systems
-
History Source: Patient
All other systems: Reviewed and negative
Physical Exam
-
General: Other (frail appearing, able to hold conversation today)
HEENT: PERRLA
Respiratory: Decreased Breath Sounds
Cardiac: Regular Rhythm and S1/S2
GI: Soft and Nontender
Musculoskeletal: No Edema
Skin: Warm and Dry; Negative Rash
Neuro: AO x 3
Psych: Calm
Data Reviewed
-
Diagnostic Radiology: Report Reviewed by me
Labs: Labs Reviewed by me
[2023-10-13 12:05] LABS: Glucose - Point of Care 184 mg/dl (70-99)
[2023-10-13 13:40] VITALS: BMI 24.0
[2023-10-13 15:07] VITALS: BP 118/49
--- NOTE | 2023-10-13 15:19 | CM ---
Addendum entered by Jade Hardwick 10/13/23 15:24:
Advance Directive information provided to daughter.
Original Note:
patient seen bedside.
Minimally verbal at this time.
Daughter in room and answered questions.
Per daughter patient is short term at [facility] for skilled rehab and plan is to return for skilled rehab.
Patient with hx melanoma and currently undergoing treatment at [facility] (transports from [facility] for treatment)
patient is WC bound at present time and requires assist of 2 for transfers.
Patient does feed herself.
Per daughter, patients orientation has decreased recently.
PT/OT conusltations (P).
Currently NPO, speech eval (P).
PCP: Riaz
Pharmacy: [facility]
Plan: back to [facility], will require insurance authorization.
[2023-10-13 17:10] LABS: Glucose - Point of Care 102 mg/dl (70-99)
[2023-10-13] MEDS: NOVOLOG FLEXPEN-MODERATE RESISTANCE SC (17:47)
[2023-10-13] MEDS: LOVENOX 40 MG SC (17:48)
[2023-10-13 19:42] VITALS: BP 103/75
[2023-10-13 23:13] VITALS: BP 129/61
[2023-10-14] VITALS (8 sets, daily range): BP systolic 107–159; BP diastolic 54–77; PULSE 71; O2SAT 95
[2023-10-14 01:09] LABS: Glucose - Point of Care 96 mg/dl (70-99)
[2023-10-14] MEDS: NSS 1000 IV (02:03)
[2023-10-14] MEDS: ZOSYN 50 IV ×3 (02:03→13:57)
[2023-10-14 06:14] LABS: Glucose - Point of Care 129 mg/dl (70-99)
[2023-10-14 07:53] LABS: Hematocrit 36.4 % (37.0-47.0); Hemoglobin 12.4 g/dL (12.0-16.0); Mean Corp Hgb Conc. 34.1 g/dL (33.0-37.0); Mean Corpuscular Hgb 29.1 pg (27.0-31.0); Mean Corpuscular Volume 85.4 fL (81.0-99.0); Mean Platelet Volume 10.3 fL (7.4-10.4); Platelet Count 273 10^3/uL (130-400); Red Blood Cell Count 4.26 10^6/uL (4.20-5.40); Red Cell Dist. Width 17.6 % (11.5-14.5); White Blood Cell Count 10.9 10^3/uL (4.8-10.8)
[2023-10-14] MEDS: LIDOCAINE 4% PATCH 1 PATCH TOPICAL (08:08)
[2023-10-14 08:17] LABS: Blood Urea Nitrogen 15 mg/dl (7-17); Carbon Dioxide 19 mmol/L (22-30); Chloride 117 mmol/L (98-107); Estimated Creatinine Clearance 57 ml/min; Glucose 105 mg/dl (70-99); Potassium 3.2 mmol/L (3.5-5.1); Sodium 145 mmol/L (135-145); eGFR > 60.00
[2023-10-14] MEDS: KCL 270 MEQ IV (10:36)
--- NOTE | 2023-10-14 11:50 | PTOTSP ---
ST Acute Care Evaluation
Pt currently presents with mild to moderate oral dysphagia characterized by impulsivity with bite size and intake rate, prolonged mastication, reduced bolus formation, reduced oral awareness, and reduced oral clearance. Pt also presents with
suspected mild pharyngoesophageal dysphagia characterized by occasional weak coughing s/p ingestion of thin liquids as well as fairly persistent intermittent belching s/p ingestion of liquids.
Recommendations:
- Initiate PO diet of SOFT BITE SIZED SOLIDS and THIN LIQUIDS with meds WHOLE IN PUREE.
- STRICT ASPIRATION PRECAUTIONS: Pt must have FULL SUPERVISION for ALL PO intake; pt must be fully awake, alert, and upright for PO intake; encourage pt to take SMALL single sips; encourage pt to take one bite and FINISH that bite prior to taking a
new bite; check for pocketing/oral clearance; discontinue PO intake if pt is in respiratory distress.
- DINING HOST will f/u again tomorrow and re-assess to determine whether pt would benefit from a VFSS for more objective information.
[2023-10-14 12:08] LABS: Glucose - Point of Care 133 mg/dl (70-99)
--- NOTE | 2023-10-14 12:14 | W.PN.HOSP.TC ---
Today's Communication/Plan
-
approaching DC - SNF
continue IV Zosyn
order diet
stop fludis
Assessment / Plan
Assessment / Plan
Ms. Kaz Booth is a 83 yo woman with hx HTN, HLD, DM, paroxysmal afib, melanoma on immunotherapy [facility] with [facility]argy. Upon arrival patient found to be lethargic, triage vitals stable, labs with WBC 22.4,
normal renal function, glucose 379. Lactate 2.2, UA with inflammation.
Urosepsis - ESBL Klebsiella
TME 2/2 sepsis
Severe sepsis
-COVID, influenza A&B negative
-Rapid strep negative
-History of Klebsiella pneumonia, Enterococcus facialis in urine
-final culture shows ESBL Klebsiella
-continue IV Zosyn (day 3)
-lactic acidosis cleared
-appreciate ST - diet ordered today, stop IVF
-PT/OT recommending SNF
+ monospot test
-unclear if false positive as symptoms more likely explained from UTI
-will obtain AB
# Type 2 diabetes with hyperglycemia
-diabetic diet
-ISS
-holding ROLL PLUGGER MACHINE OPERATOR metformin
# Chronic LFT elevation
-exacerbated with sepsis, improving
Hyponatremia history
-Na 140's here - continue to hold ROLL PLUGGER MACHINE OPERATOR salt tabs; will not fluid restrict today but monitor Na results to see if necessary
#Paroxysmal atrial fibrillation
-resume home amiodarone and Metoprolol
-not on blood thinners at home
#Neuropathy
-Continue to hold gabapentin given recovery from TME
-ROLL PLUGGER MACHINE OPERATOR Lidocaine patch
# Anxiety
-ROLL PLUGGER MACHINE OPERATOR ativan PRN
#Macular degeneration
Melanoma
-Status post immunotherapy
# DVT prophylaxis - lovenox subQ
#CODE STATUS
-DNR
Anticipated Discharge: 24 - 48 hours
Subjective/Interval History
-
Date of Service: October 14, 2023
feeling better
wants to eat lunch
Objective Data
-
Labs:
Laboratory Results
10/14/23
07:18
WBC 10.9 H
Hgb 12.4
Hct 36.4 L
Plt Count 273
Sodium 145
Potassium 3.2 L
Chloride 117 H
Carbon Dioxide 19 L
BUN 15
Creatinine 0.7
Glucose 105 H
Calcium 8.0 L
Vital Signs:
Vital Signs
Temp Pulse Resp BP Pulse Ox
97.4 F 69 16 152/65 95
10/14/23 11:22 10/14/23 11:22 10/14/23 11:22 10/14/23 11:22 10/14/23 11:22
I&O
10/13/23 10/14/23 10/15/23
06:59 06:59 06:59
Intake Total 800 / 800 920 / 920
Balance 800 / 800 920 / 920
Review of Systems
-
History Source: Patient
All other systems: Reviewed and negative
Physical Exam
-
General: No Apparent Distress
HEENT: PERRLA
Respiratory: Clear to Auscultation; Negative Wheezes
Cardiac: Regular Rhythm and S1/S2
GI: Soft and Nontender
Musculoskeletal: No Edema
Skin: Warm and Dry; Negative Rash
Neuro: AO x 3
Psych: Calm
Data Reviewed
-
Diagnostic Radiology: Report Reviewed by me
Labs: Labs Reviewed by me
[2023-10-14] MEDS: PACERONE 200 MG PO (13:56)
[2023-10-14] MEDS: LOPRESSOR 25 MG PO ×2 (13:56→20:59)
[2023-10-14] MEDS: NSS IV (13:59)
[2023-10-14 17:01] LABS: Glucose - Point of Care 82 mg/dl (70-99)
[2023-10-14] MEDS: NOVOLOG FLEXPEN-MODERATE RESISTANCE SC (18:06)
[2023-10-14] MEDS: LOVENOX 40 MG SC (18:06)
[2023-10-14] MEDS: ZOSYN 100 IV (20:56)
[2023-10-14] MEDS: REMERON 7.5 MG PO (21:00)
[2023-10-14 21:20] LABS: Glucose - Point of Care 105 mg/dl (70-99)
[2023-10-15] MEDS: ZOSYN 100 IV ×2 (02:28→09:15)
[2023-10-15 03:24] VITALS: BP 144/65
[2023-10-15 07:35] VITALS: BP 115/52
[2023-10-15 07:55] LABS: Glucose - Point of Care 118 mg/dl (70-99)
[2023-10-15] MEDS: NOVOLOG FLEXPEN-MODERATE RESISTANCE SC ×3 (07:57→16:59)
[2023-10-15] MEDS: LOPRESSOR 25 MG PO ×2 (09:12→19:37)
[2023-10-15] MEDS: KCL 20 MEQ PO ×2 (09:12→19:37)
[2023-10-15] MEDS: LIDOCAINE 4% PATCH 1 PATCH TOPICAL (09:13)
[2023-10-15] MEDS: PACERONE 200 MG PO (09:13)
--- NOTE | 2023-10-15 10:27 | CON.ID ---
Consultation
-
Date/Time Consultation Requested: 10/15/2023 09:40
Date/Time Consultation Performed: 10/15/2023 1023
Requesting Provider: Dr. Jonas
Performing Provider: Dr. Jennings
Reason for Consultation: Complicated urinary tract infection
Chief Complaint / Past History
History of Present Illness
Kaz Booth is an 83-year-old female being evaluated at the request of Dr. Jonas in regards to a complicated urinary tract infection. History is obtained from chart review, along with patient interview.
The patient presented to [facility] emergency room on 10/12/2023 from a local residential ([facility]) following the development of reported change in mental status. According to reviewed notes the patient has had a slow decline over
the past 1 to 2 weeks. She has a history of melanoma and is currently on immunotherapy. She has been noted to have increased fatigue, along with decreased p.o. intake.
Workup in the ER revealed the presence of a marked leukocytosis. Urinalysis was shown to have pyuria, and cultures revealed growth of ESBL Klebsiella pneumoniae. Of note, the patient also had a urine culture positive for Klebsiella pneumonia a
approximately 1 month ago.
At present, patient provides little in the way of history, although denies specific pain. She reports that she feels exceedingly fatigued. She denies any chest pain or shortness of breath. She denies any cough. She denies any dysuria at present.
Past History
Additional Past Medical History:
A-fib
HTN
Dyslipidemia
DM
Bilateral knee DJD
Additional Past Surgical History:
PPM placement
Allergy History:
No Known Allergies Allergy (Verified 12/04/22 00:19)
Medications Reviewed: Yes
Current Antibiotics:
Zosyn (day #4)
Social History
Tobacco: Former Smoker
Alcohol: None
Drug: None
Living: Alf
Employment: Not Employed
Family History
Family History: Not Pertinent
Review of Systems
Vital Signs
Temp Pulse Resp BP Pulse Ox
97.7 F 76 17 115/52 94
10/15/23 07:35 10/15/23 07:35 10/15/23 07:35 10/15/23 07:35 10/15/23 07:35
Physical Exam
Physical Exam
Constitutional: No Acute Distress, Comfortable, Chronically Ill and Non-toxic
Head: Normocephalic
Eyes: Pupils Equal, Pupils Round, No Conjunctival Hemorrhage and Sclera Anicteric
Cardiovascular: S1/S2; Negative S3/S4 or Murmur
Pulmonary: Clear; Negative Wheezes or Rales
Gastrointestinal: Soft, Non Tender and Non Distended
Extremities: Negative Edema or Cyanosis
Wound: Other (Left ischial/gluteal deep tissue injury noted (unstageable). Right ischial/gluteal wounds noted. No malodor appreciated.)
Neurological: Awake and Other (Responsive to voice and touch. Follow simple commands. Answers questions.)
Psychological: Calm
Lab / Diagnostic Study Results
Abs Immat Gran (auto) 0.2 10^3/uL (0-0.05) H 10/12/23 11:50
Absolute Neuts (auto) 19.4 10^3/uL (1.4-6.5) H 10/12/23 11:50
Absolute Lymphs (auto) 1.3 10^3/uL (1.2-3.4) 10/12/23 11:50
Absolute Monos (auto) 1.4 10^3/uL (0.1-0.6) H 10/12/23 11:50
Absolute Basos (auto) 0.1 10^3/uL (0-0.2) 10/12/23 11:50
Immature Gran % 0.8 % (0-0.5) H 10/12/23 11:50
Neutrophils % 86.9 % (42.2-75.2) H 10/12/23 11:50
Lymphocytes % 5.6 % (20.5-51.1) L 10/12/23 11:50
Monocytes % 6.3 % (1.7-9.3) 10/12/23 11:50
Eosinophils % 0.0 % (0-6) 10/12/23 11:50
Basophils % 0.4 % (0-2) 10/12/23 11:50
Lactic Acid Cancelled 10/13/23 05:00
Ur Squamous Epith Cells 3-5 /LPF (Few) 10/12/23 11:50
Microbiology Results
Micro:
10/12/23 12:37 Streptococcus Screen (JOSE) - Final
Throat/Pharynx No Beta Hemolytic Streptococci Isolated
Streptococcus Rapid Screen - Final
Rapid Strep Screen (Group A) Negative
10/12/23 11:50 Urine Culture - Final
Urine Klebsiella pneumoniae-ESBL
10/14/23 08:12 MRSA Screen - Pending
Nose
10/12/23 12:39 Influenza Types A & B (KRISTIAN) - Final
Nasal Swab Negative for Influenza A & B, NAAT
Negative results must be combined with clinical observations
and patient history.
Nucleic Acid Amplification test (NAAT)performed on the
[employer] platform.
Urine Culture Final 10/12/23
CC: Greater than 100,000 CFU/ML
Organism 1 Klebsiella pneumoniae-ESBL
1. Klebsiella pneumoniae-ESBL
M.I.C. RX
--------- ---
Amoxicillin/Potas. Clavulanate <=8/4 S
Ampicillin >16 R
Ampicillin/Sulbactam 16/8 I
Cefazolin >16 R
Cefepime >16 R
Ceftazidime 16 R
Ceftriaxone >2 R
Ertapenem <=0.5 S
Ciprofloxacin 0.5 I
Gentamicin <=4 S
Levofloxacin <=0.5 S
Meropenem <=1 S
Nitrofurantoin-Urine Only 64 I
Piperacillin/Tazobactam <=16 S
Tobramycin <=4 S
Trimethoprim/Sulfamethoxazole > R
Assessment / Plan
Complicated UTI 2*ESBL Klebsiella pneumoniae
Leukocytosis
- improved
Encephalopathy
- suspect TME secondary to above
Positive Monospot
DDx of a positive result fairly broad. Doubt acute EBV infection as etiology.
B/L ischial/gluteal wounds
A-fib
- on amiodarone
HTN
Dyslipidemia
DM
Bilateral knee DJD
Recommendations:
Would continue with zosyn in treatment of recovered ESBL Klebsiella.
- Decrease to 3.375 g IV every 6 hours
Sensitivities reviewed, and only oral option would be fluoroquinolones, but of note, patient is currently on amiodarone which is a relative contraindication.
At discharge, can either continue with Zosyn, or transition to ertapenem 1gm IV q24h, to complete a 10-day course (in total) of antibiotics.
Continue with local care to the ischial wounds.
[2023-10-15 10:33] VITALS: BP 132/58
[2023-10-15 10:49] LABS: Blood Urea Nitrogen 8 mg/dl (7-17); Calcium 7.4 mg/dl (8.4-10.2); Carbon Dioxide 19 mmol/L (22-30); Chloride 108 mmol/L (98-107); Estimated Creatinine Clearance 57 ml/min; Glucose 105 mg/dl (70-99); Magnesium 1.3 mg/dl (1.6-2.3); Potassium 3.1 mmol/L (3.5-5.1); Sodium 134 mmol/L (135-145); eGFR > 60.00
--- NOTE | 2023-10-15 11:40 | WOUNDNOTE ---
WON RN note: Patient admitted with sepsis and UTI.
See H&P for complete history. Lives at [facility].
PMH: A Fib, HTN, DM, melanoma-tumor on upper back spread to lymph nodes, macular degeneration.
Wound Location and type/assessment: Patient known to service, admitted with sacral and b/l ischial DTI PI. Patient denies sitting in chair for long periods of time. Patient much weaker and less talkative compared to when last seen on 07/24/23.
Patient seen in July for a tumor wound on back, now with flat scar and new PI's, as stated above. Turned with assist from Dr. Jennings. RN Mitzi assisted with wound care, too weak for patient to remain on side by self. On air overlay but nurse
reports it keeps deflating, will call [facility] for air mattress. Incontinent of urine, brief soaked. Nurse to apply Purwick and ultrasorb pad changed. Requested using only pad and not diaper. Heels intact, tiny scab on R heel suspect abrasion vs true PI.
L dorsal foot with tiny scab abrasion.
Appetite: Nurse reports she was fed her breakfast this morning and had 50% of it.
Pressure redistribution devices in place: Nurse and PCT transferred [facility] to [facility]. Pillow under calves.
Plan: Adaptic and silicone foam applied to larger wound on L ischium, all others silicone foam. Applied heel foams to protect and skin prepped abrasion on L foot. Patient repositioned onto R semi side lying position.
Confirmed orders with hospitalist and Dr. Jennings. Updated nurse and care plan, will follow as needed.
Note to case management of equipment requested for discharge: Air mattress at [place].
[2023-10-15 11:58] LABS: Hemoglobin 11.7 g/dL (12.0-16.0); Mean Corp Hgb Conc. 34.4 g/dL (33.0-37.0); Mean Corpuscular Hgb 27.9 pg (27.0-31.0); Mean Platelet Volume 10.2 fL (7.4-10.4); Platelet Count 276 10^3/uL (130-400); Red Cell Dist. Width 17.2 % (11.5-14.5); White Blood Cell Count 7.7 10^3/uL (4.8-10.8)
[2023-10-15 12:02] LABS: Glucose - Point of Care 133 mg/dl (70-99)
[2023-10-15 14:30] VITALS: BP 136/60
--- NOTE | 2023-10-15 15:13 | W.PN.HOSP.TC ---
Today's Communication/Plan
-
Follow ID recommendation
Begin discharge planning to SNF
Assessment / Plan
Assessment / Plan
NAD, resting comfortably in bed
Scleral anicteric
Moist mucous membranes
No JVD
CTA bilateral
Normal S1-S2 no murmurs
Soft nontender nondistended bowel sounds active
No peripheral pitting edema
Moves extremities spontaneously
3 DTI's all are covered
AAO
Ms. Kaz Booth is a 83 yo woman with hx HTN, HLD, DM, paroxysmal afib, melanoma on immunotherapy [facility] with [facility]. Upon arrival patient found to be lethargic, triage vitals stable, labs with WBC 22.4,
normal renal function, glucose 379. Lactate 2.2, UA with inflammation.
Urosepsis - ESBL Klebsiella
TME 2/2 sepsis
Severe sepsis
-COVID, influenza A&B negative
-Rapid strep negative
-History of Klebsiella pneumonia, Enterococcus facialis in urine
-final culture shows ESBL Klebsiella
-continue IV Zosyn (day 4)
- -Unfortunately per sensitivities only can transition to quinolones. But on amiodarone and this is a relative contraindication.
- -Therefore at this time we will continue IV Zosyn. May need to consider placing PICC line to complete 10-day course of antibiotics
-lactic acidosis cleared
-appreciate ST - diet ordered today, stop IVF
-PT/OT recommending SNF
# Type 2 diabetes with hyperglycemia
-diabetic diet
-ISS
-holding BIT GATHERER metformin
# Chronic LFT elevation
-exacerbated with sepsis, improving
Hyponatremia history
-Na 140's here - continue to hold BIT GATHERER salt tabs; will not fluid restrict today but monitor Na results to see if necessary
#Paroxysmal atrial fibrillation
-resume home amiodarone and Metoprolol
-not on blood thinners at home
#Neuropathy
-Continue to hold gabapentin given recovery from TME
-BIT GATHERER Lidocaine patch
# Anxiety
-BIT GATHERER ativan PRN
#Macular degeneration
Melanoma
-Status post immunotherapy
# DVT prophylaxis - lovenox subQ
For SNF
#CODE STATUS
-DNR
Anticipated Discharge: Within 24 hours
Subjective/Interval History
-
Date of Service: October 15, 2023
Seen and examined. No new complaints. No acute overnight events
Objective Data
-
Labs:
Laboratory Results
10/15/23
08:51
WBC 7.7
Hgb 11.7 L
Hct 34.0 L
Plt Count 276
Sodium 134 L D
Potassium 3.1 L
Chloride 108 H
Carbon Dioxide 19 L
BUN 8
Creatinine 0.7
Glucose 105 H
Calcium 7.4 L
Vital Signs:
Vital Signs
Temp Pulse Resp BP Pulse Ox
97.7 F 70 17 136/60 90
10/15/23 14:30 10/15/23 14:30 10/15/23 14:30 10/15/23 14:30 10/15/23 14:30
I&O
10/14/23 10/15/23 10/16/23
06:59 06:59 06:59
Intake Total 920 / 920 1630 / 1630
Balance 920 / 920 1630 / 1630
--- NOTE | 2023-10-15 15:34 | CM ---
Addendum entered by Jade Hardwick 10/15/23 16:46:
PT/OT to see patient in am.
Need clarification on anbx and midline vs PICC.
Will need to initiate authorization for skilled rehab
[facility] NPI# [id number]
Dr Mello NPI #[id number]
[facility] phone# [phone]
fax# [phone]
Plan: Skilled rehab when medically stable, auth received
Original Note:
Patient for tentative d/c back to [facility] tomorrow.
Left VM for Mimi, await call back.
Per MD notes plan is for IV anbx. Anbx not finalized yet.
TC to PT department and requested patient be seen in am so insurance auth can be initiated with dominique/LUDMILA real.
Patient will need ambulance transport, forms on chart.
Plan: back to [facility] when stable, needs insurance auth
[2023-10-15] MEDS: ZOSYN 50 IV ×2 (15:51→21:50)
[2023-10-15 16:44] LABS: Glucose - Point of Care 137 mg/dl (70-99)
[2023-10-15] MEDS: LOVENOX 40 MG SC (18:20)
[2023-10-15 19:25] VITALS: BP 124/61
[2023-10-15 21:28] LABS: Glucose - Point of Care 159 mg/dl (70-99)
[2023-10-15] MEDS: REMERON 7.5 MG PO (21:53)
[2023-10-15 22:53] LABS: EBV-VCA IgM Antibodies <10.0 U/mL (0.0-43.9)
[2023-10-15 23:03] VITALS: BP 132/65
[2023-10-16 03:01] VITALS: BP 159/70
[2023-10-16] MEDS: ZOSYN 50 IV ×4 (04:17→22:06)
[2023-10-16 07:35] VITALS: BP 153/65
[2023-10-16 07:59] LABS: Glucose - Point of Care 155 mg/dl (70-99)
[2023-10-16 08:07] LABS: Hematocrit 37.2 % (37.0-47.0); Mean Corp Hgb Conc. 34.9 g/dL (33.0-37.0); Mean Corpuscular Hgb 28.3 pg (27.0-31.0); Mean Platelet Volume 10.1 fL (7.4-10.4); Platelet Count 261 10^3/uL (130-400); Red Blood Cell Count 4.59 10^6/uL (4.20-5.40); Red Cell Dist. Width 16.3 % (11.5-14.5); White Blood Cell Count 7.7 10^3/uL (4.8-10.8)
[2023-10-16 08:31] VITALS: BP 141/67; PULSE 76; PULSE 87; O2SAT 97
--- NOTE | 2023-10-16 09:19 | W.PN.HOSP.TC ---
Today's Communication/Plan
-
dispo issue, will need iv atb x10day. will need midline or picc line.
-consult ir once able to fingure out dispo.
Assessment / Plan
Assessment / Plan
NAD, resting comfortably in bed
Scleral anicteric
Moist mucous membranes
No JVD
CTA bilateral
Normal S1-S2 no murmurs
Soft nontender nondistended bowel sounds active
No peripheral pitting edema
Moves extremities spontaneously
3 DTI's all are covered
AAO
Ms. Kaz Booth is a 83 yo woman with hx HTN, HLD, DM, paroxysmal afib, melanoma on immunotherapy presents to the ER from residential with lethargy. Upon arrival patient found to be lethargic, triage vitals stable, labs with WBC 22.4,
normal renal function, glucose 379. Lactate 2.2, UA with inflammation.
Urosepsis - ESBL Klebsiella
TME 2/2 sepsis
Severe sepsis
-COVID, influenza A&B negative
-Rapid strep negative
-History of Klebsiella pneumonia, Enterococcus facialis in urine
-final culture shows ESBL Klebsiella
-continue IV Zosyn (day 4)
- -Unfortunately per sensitivities only can transition to quinolones. But on amiodarone and this is a relative contraindication.
- -Therefore at this time we will continue IV Zosyn. May need to consider placing PICC line to complete 10-day course of antibiotics
-lactic acidosis cleared
-appreciate ST - diet ordered today, stop IVF
-PT/OT recommending SNF
# Type 2 diabetes with hyperglycemia
-diabetic diet
-ISS
-holding HOG MAN metformin
# Chronic LFT elevation
-exacerbated with sepsis, improving
Hyponatremia history
-Na 140's here - continue to hold HOG MAN salt tabs; will not fluid restrict today but monitor Na results to see if necessary
#Paroxysmal atrial fibrillation
-resume home amiodarone and Metoprolol
-not on blood thinners at home
#Neuropathy
-Continue to hold gabapentin given recovery from TME
-HOG MAN Lidocaine patch
# Anxiety
-HOG MAN ativan PRN
#Macular degeneration
Melanoma
-Status post immunotherapy
# DVT prophylaxis - lovenox subQ
For SNF
#CODE STATUS
-DNR
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
she lives alone and may need snf
i have involved care management.
Anticipated Discharge: 24 - 48 hours
Subjective/Interval History
-
Date of Service: October 16, 2023
seen and examined. no new compalints. no acute overnight events
feeling better today, verbalizing more.
Objective Data
-
Labs:
Laboratory Results
10/16/23
07:13
WBC 7.7
Hgb 13.0
Hct 37.2
Plt Count 261
Vital Signs:
Vital Signs
Temp Pulse Resp BP Pulse Ox
97.2 F 67 17 153/65 95
10/16/23 07:35 10/16/23 07:35 10/16/23 07:35 10/16/23 07:35 10/16/23 07:35
I&O
10/15/23 10/16/23 10/17/23
06:59 06:59 06:59
Intake Total 1630 / 1630 1300 / 1300
Output Total 1100 / 1100
Balance 1630 / 1630 200 / 200
[2023-10-16] MEDS: KCL 20 MEQ PO ×2 (09:20→19:36)
[2023-10-16] MEDS: NOVOLOG FLEXPEN-MODERATE RESISTANCE 1 UNITS SC (09:20)
[2023-10-16] MEDS: LIDOCAINE 4% PATCH TOPICAL (09:22)
[2023-10-16] MEDS: PACERONE 200 MG PO (09:23)
[2023-10-16] MEDS: LOPRESSOR 25 MG PO ×2 (09:23→19:37)
[2023-10-16 09:48] LABS: Blood Urea Nitrogen 6 mg/dl (7-17); Calcium 7.1 mg/dl (8.4-10.2); Carbon Dioxide 20 mmol/L (22-30); Chloride 107 mmol/L (98-107); Estimated Creatinine Clearance 67 ml/min; Glucose 150 mg/dl (70-99); Potassium 3.3 mmol/L (3.5-5.1); Sodium 133 mmol/L (135-145); eGFR > 60.00
[2023-10-16 10:49] VITALS: BP 131/63
[2023-10-16 11:45] LABS: Glucose - Point of Care 207 mg/dl (70-99)
[2023-10-16] MEDS: NOVOLOG FLEXPEN-MODERATE RESISTANCE 3 UNITS SC (11:45)
[2023-10-16 12:10] LABS: Glucose - Point of Care 166 mg/dl (70-99)
[2023-10-16 14:30] VITALS: BP 137/65
--- NOTE | 2023-10-16 14:42 | PN.CDI ---
CDI
- -
CDI:
Physician Documentation Request
Admit Date: 10/12/23 15:18
Dear Doctor Pritesh,
Please review the following and provide your response in the progress notes.
Clinical Indicators:
Pt admitted with Sepsis 2/2 UTI/TME
Potassium levels are as below/ Per MAR did get IV 40 MEQ KCL in 250 NSS one on 10/12 & 1 bag on 10/13, KCL 20 MEQ PO BID ordered 10/14
10/13/23 10/14/23 10/15/23
07:02 07:18 08:51
Potassium 3.3 L D 3.2 L 3.1 L
10/16/23
07:13
Potassium 3.3 L
Based on the above, could you clarify in the progress notes, the appropriate diagnosis, if significant, that supports the above abnormalities and additional evaluation, monitoring and/or treatment rendered:
Hypokalemia
Abnormal lab value
Other
Use of terms such as suspected, likely, concern for, or probable (associated with a specific diagnosis that is being evaluated, monitored, or treated as if it exists) are acceptable and can be coded in the inpatient setting, when documented at the
time of discharge.
Thank you,
Soraida Simmons RN
CDI Specialist
[place] [facility]
Please use your independent medical judgment in providing your response.
--- NOTE | 2023-10-16 14:46 | PN.CDI ---
CDI
- -
CDI:
Physician Documentation Request
Admit Date: 10/12/23 15:18
Dear Doctor Pritesh,
Please review the following and provide your response in the progress notes.
Clinical Indicators:
Pt admitted with Sepsis 2/2 UTI/TME
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
Sodium levels are as below /Did get IVFs and salt tabs have been on HOLD
10/15/23 10/16/23
08:51 07:13
Sodium 134 L D 133 L
Based on the above, could you clarify in the progress notes, the appropriate diagnosis, if significant, that supports the above abnormalities and additional evaluation, monitoring and/or treatment rendered:
Hyponatremia
Abnormal lab value
Other
Use of terms such as suspected, likely, concern for, or probable (associated with a specific diagnosis that is being evaluated, monitored, or treated as if it exists) are acceptable and can be coded in the inpatient setting, when documented at the
time of discharge.
Thank you,
Soraida Simmons RN
CDI Specialist
[place] [facility]
Please use your independent medical judgment in providing your response.
--- NOTE | 2023-10-16 14:49 | PN.CDI ---
CDI
- -
CDI:
Physician Documentation Request
Admit Date: 10/12/23 15:18
Dear Doctor Pritesh,
Please review the following and provide your response in the progress notes.
Clinical Indicators:
Pt admitted with Sepsis 2/2 UTI/TME
Documented per WOCN note 10/14, ' ..admitted with sacral and b/l ischial DTI PI. Patient denies sitting in chair for long periods of time...Adaptic and silicone foam applied to larger wound on L ischium, all others silicone foam...'
Physician documentation of the type and location of wounds is required for compliant documentation. Based on the above clinical findings and your assessment, please provide the following in your progress note:
1. Location of the ulcer/wound, including laterality.
2. Type (etiology) of ulcer/wound:
- Deep tissue injury/Pressure injury
- Non-pressure injury
- Other
Use of terms such as suspected, likely, concern for, or probable (associated with a specific diagnosis that is being evaluated, monitored, or treated as if it exists) are acceptable and can be coded in the inpatient setting, when documented at the
time of discharge.
Thank you,
Soraida Simmons RN
CDI Specialist
[place] [facility]
Please use your independent medical judgment in providing your response.
*Source: National Pressure Ulcer Advisory Panel (NPUAP)
--- NOTE | 2023-10-16 15:05 | CM ---
CM reviewed chart, plan to return to [facility] once auth obtained. Patient will require 10 days of IV antibiotics upon discharge. Auth faxed to Dharmesh (fax- [phone]) auth reference number #[id number]. Can call [phone] for updates
on auth status. Midline to be placed today. CM sent updated clinicals through [facility], Mimi at [facility] aware auth being initiated. CM will continue to follow for all discharge planning needs.
Plan; return to [facility] once [employer] auth received.
[2023-10-16 16:50] LABS: Glucose - Point of Care 105 mg/dl (70-99)
[2023-10-16] MEDS: NOVOLOG FLEXPEN-MODERATE RESISTANCE SC (16:51)
--- NOTE | 2023-10-16 17:09 | W.PN.ID1 ---
Date of Service
Date of Service: October 16, 2023
Today's Communication
Continue abx.
Assessment / Plan
Complicated UTI 2*ESBL Klebsiella pneumoniae
Leukocytosis
- improved
Encephalopathy
- suspect TME secondary to above
Positive Monospot
DDx of a positive result fairly broad. Doubt acute EBV infection as etiology.
B/L ischial/gluteal wounds
A-fib
- on amiodarone
HTN
Dyslipidemia
DM
Bilateral knee DJD
Recommendations:
Would continue with zosyn in treatment of recovered ESBL Klebsiella.
- Decrease to 3.375 g IV every 6 hours
Sensitivities reviewed, and only oral option would be fluoroquinolones, but of note, patient is currently on amiodarone which is a relative contraindication.
At discharge, continue with Zosyn, or transition to ertapenem 1gm IV q24h, to complete a 10-day course (through 10/02/23)
Continue with local care to the ischial wounds.
Chief Complaint
-: UTI
Subjective / Review of Systems
Review of Systems: No Fever and No Chills
Vital Signs / Physical Exam
Vital Signs
Vital Signs
Temp Pulse Resp BP Pulse Ox
97.2 F 78 17 137/65 96
10/16/23 14:30 10/16/23 14:30 10/16/23 14:30 10/16/23 14:30 10/16/23 14:30
Physical Exam
Constitutional: No Acute Distress, Comfortable, Chronically Ill and Non-toxic
Eyes: Sclera Anicteric
Cardiovascular: Regular Rate and S1/S2; Negative S3/S4
Pulmonary: Clear; Negative Wheezes or Rales
Gastrointestinal: Soft, Non Tender and Non Distended
Genito-Urinary: Other (Purewick in place)
Extremities: Negative Edema, Cyanosis or Erythema
Neurological: Awake and Alert
Psychological: Confused
Objective Data
Lab Data
Lab Results
10/16/23 07:13
10/16/23 07:13
Estimated Creat Clear 67 ml/min 10/16/23 07:13
Lactic Acid Cancelled 10/13/23 05:00
Total Bilirubin 0.8 mg/dl (0.2-1.3) 10/13/23 07:02
AST 32 U/L (14-36) 10/13/23 07:02
ALT 37 U/L (0-35) H 10/13/23 07:02
Alkaline Phosphatase 105 U/L (38-126) 10/13/23 07:02
Most recent labs reviewed.
Micro Results:
10/14/23 08:12 MRSA Screen - Final
Nose No Methicillin Resistant Staphylococcus aureus isolated.
10/12/23 12:37 Streptococcus Screen (JOSE) - Final
Throat/Pharynx No Beta Hemolytic Streptococci Isolated
Streptococcus Rapid Screen - Final
Rapid Strep Screen (Group A) Negative
10/12/23 11:50 Urine Culture - Final
Urine Klebsiella pneumoniae-ESBL
10/12/23 12:39 Influenza Types A & B (KRISTIAN) - Final
Nasal Swab Negative for Influenza A & B, NAAT
Negative results must be combined with clinical observations
and patient history.
Nucleic Acid Amplification test (NAAT)performed on the
[employer] platform.
Urine Culture Final 10/12/23
CC: Greater than 100,000 CFU/ML
Organism 1 Klebsiella pneumoniae-ESBL
1. Klebsiella pneumoniae-ESBL
M.I.C. RX
--------- ---
Amoxicillin/Potas. Clavulanate <=8/4 S
Ampicillin >16 R
Ampicillin/Sulbactam 16/8 I
Cefazolin >16 R
Cefepime >16 R
Ceftazidime 16 R
Ceftriaxone >2 R
Ertapenem <=0.5 S
Ciprofloxacin 0.5 I
Gentamicin <=4 S
Levofloxacin <=0.5 S
Meropenem <=1 S
Nitrofurantoin-Urine Only 64 I
Piperacillin/Tazobactam <=16 S
Tobramycin <=4 S
Trimethoprim/Sulfamethoxazole > R
[2023-10-16] MEDS: LOVENOX SC ×2 (17:34→17:36)
[2023-10-16 19:49] VITALS: BP 149/65
--- NOTE | 2023-10-16 21:50 | PTCARENOTE ---
Pt refused HS ACCU check, RN made aware.
[2023-10-16] MEDS: REMERON PO ×2 (21:59→22:36)
--- NOTE | 2023-10-16 22:35 | PTCARENOTE ---
Pt refusing accucheck, po meds and vital signs despite multiple attempts to persuade pt to agree.
--- NOTE | 2023-10-17 03:01 | DOWNTIME ---
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 Downtime documentation of patient's care, including medication administrations, has been reconciled in the electronic record per guidelines. Refer to the
patient's paper chart under the miscellaneous tab to see printed paper medication records and downtime forms.
--- NOTE | 2023-10-17 03:03 | PTCARENOTE ---
Pt continues to refuse VS after numerous attempts. RN made aware.
[2023-10-17] MEDS: ZOSYN 50 IV ×2 (03:54→09:49)
--- NOTE | 2023-10-17 05:59 | PTCARENOTE ---
Pt continues to refuse care, will not allow purewick to be changed.
--- NOTE | 2023-10-17 07:34 | PTCARENOTE ---
pt refused blood work as well as vital signs this morning.
[2023-10-17 08:04] VITALS: BP 153/85
[2023-10-17] MEDS: NOVOLOG FLEXPEN-MODERATE RESISTANCE SC (08:17)
[2023-10-17] MEDS: KCL PO (08:28)
[2023-10-17] MEDS: LIDOCAINE 4% PATCH TOPICAL (08:29)
[2023-10-17] MEDS: LOPRESSOR PO (08:30)
[2023-10-17] MEDS: PACERONE PO (08:30)
--- NOTE | 2023-10-17 09:05 | W.PN.HOSP.TC ---
Addendum entered and electronically signed by Federico Jonas MD 10/17/23 18:17:
hyponatremia
hypoklemia
sacral and b/l ischial DTI PI
Heels intact, tiny scab on R heel suspect abrasion vs true PI. L dorsal foot with tiny scab abrasion.
Addendum entered and electronically signed by Federico Jonas MD 10/17/23 16:31:
Potassium 3.5 this afternoon after receiving IV p.o. potassium that was ordered.
White count up how well for all cell lineages are up. He had likely hemoconcentrated. Encourage p.o. intake.
Original Note:
Today's Communication/Plan
-
provide 120meq of K
-40kcl IV
-80kcl po over 4hours
ID to leave zosyn script in chart for SNF
Midline team to place Midline today prior to DC
I personally attempted to call daughter Maia and son Isauro however reachable that her voicemail. Left voicemail for daughter Maia to give me a call back. Will discharge Ms. Booth back to [facility] today
Assessment / Plan
Assessment / Plan
NAD, resting comfortably in bed
Scleral anicteric
Moist mucous membranes
No JVD
CTA bilateral
Normal S1-S2 no murmurs
Soft nontender nondistended bowel sounds active
No peripheral pitting edema
Moves extremities spontaneously
3 DTI's all are covered
AAO
Ms. Kaz Booth is a 83 yo woman with hx HTN, HLD, DM, paroxysmal afib, melanoma on immunotherapy [facility] with [facility]argy. Upon arrival patient found to be lethargic, triage vitals stable, labs with WBC 22.4,
normal renal function, glucose 379. Lactate 2.2, UA with inflammation.
Urosepsis - ESBL Klebsiella
TME 2/2 sepsis
Severe sepsis
-COVID, influenza A&B negative
-Rapid strep negative
-History of Klebsiella pneumonia, Enterococcus facialis in urine
-final culture shows ESBL Klebsiella
-continue IV Zosyn (day 4)
- -Unfortunately per sensitivities only can transition to quinolones. But on amiodarone and this is a relative contraindication.
- -Therefore at this time we will continue IV Zosyn. May need to consider placing PICC line to complete 10-day course of antibiotics
-lactic acidosis cleared
-appreciate ST - diet ordered today, stop IVF
-PT/OT recommending SNF
# Type 2 diabetes with hyperglycemia
-diabetic diet
-ISS
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
# Chronic LFT elevation
-exacerbated with sepsis, improving
Hyponatremia history
-Na 140's here - continue to hold HOSPITAL HOUSEKEEPER salt tabs; will not fluid restrict today but monitor Na results to see if necessary
#Paroxysmal atrial fibrillation
-resume home amiodarone and Metoprolol
-not on blood thinners at home
#Neuropathy
-Continue to hold gabapentin given recovery from TME
-HOSPITAL HOUSEKEEPER Lidocaine patch
# Anxiety
-HOSPITAL HOUSEKEEPER ativan PRN
#Macular degeneration
Melanoma
-Status post immunotherapy
# DVT prophylaxis - lovenox subQ
For SNF
#CODE STATUS
-DNR
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
she lives alone and may need snf
i have involved care management.
Anticipated Discharge: Today
Subjective/Interval History
-
Date of Service: October 17, 2023
Objective Data
-
Labs:
Laboratory Results
10/17/23
06:00
WBC Pending
Hgb Pending
Hct Pending
Plt Count Pending
Sodium Pending
Potassium Pending
Chloride Pending
Carbon Dioxide Pending
BUN Pending
Creatinine Pending
Glucose Pending
Calcium Pending
Vital Signs:
Vital Signs
Temp Pulse Resp BP Pulse Ox
97.4 F 90 24 153/85 94
10/16/23 19:49 10/17/23 08:04 10/17/23 08:04 10/17/23 08:04 10/16/23 19:49
I&O
10/16/23 10/17/23 10/18/23
06:59 06:59 06:59
Intake Total 1300 / 1300 735 / 735
Output Total 1100 / 1100 500 / 500
Balance 200 / 200 235 / 235
--- NOTE | 2023-10-17 09:53 | PTCARENOTE ---
pt was very aggressive while changing her. Pt was hitting nursing staff with soiled hands while changing her.
--- NOTE | 2023-10-17 10:55 | W.PN.ID1 ---
Date of Service
Date of Service: October 17, 2023
Today's Communication
Continue antibiotics. See below�
Assessment / Plan
Complicated UTI 2*ESBL Klebsiella pneumoniae
Leukocytosis
- improved
Encephalopathy
- suspect TME secondary to above
Positive Monospot
DDx of a positive result fairly broad. Doubt acute EBV infection as etiology.
B/L ischial/gluteal wounds
A-fib
- on amiodarone
HTN
Dyslipidemia
DM
Bilateral knee DJD
Recommendations:
Continue abx (currently Zosyn d#6)
Sensitivities reviewed, and only oral option would be fluoroquinolones, but of note, patient is currently on amiodarone which is a relative contraindication.
Transition to ertapenem 1gm IV q24h, to continue through 10/22/23.
Patient should have UA with reflex culture 2 weeks following completion of abx.
Continue with local care to the ischial wounds.
Chief Complaint
-: UTI
Subjective / Review of Systems
Review of Systems: No Fever and No Chills
Vital Signs / Physical Exam
Vital Signs
Vital Signs
Temp Pulse Resp BP Pulse Ox
97.4 F 90 24 153/85 94
10/16/23 19:49 10/17/23 08:04 10/17/23 08:04 10/17/23 08:04 10/16/23 19:49
Physical Exam
Constitutional: No Acute Distress, Comfortable, Chronically Ill and Non-toxic
Head: Normocephalic
Eyes: No Conjunctival Hemorrhage and Sclera Anicteric
Cardiovascular: Regular Rate and S1/S2; Negative S3/S4
Pulmonary: Clear; Negative Wheezes or Rales
Gastrointestinal: Soft, Non Tender and Non Distended
Genito-Urinary: Other (Purewick in place)
Extremities: Negative Edema, Cyanosis or Erythema
Neurological: Awake and Alert
Psychological: Confused
Objective Data
Lab Data
Estimated Creat Clear 67 ml/min 10/16/23 07:13
Lactic Acid Cancelled 10/13/23 05:00
Total Bilirubin 0.8 mg/dl (0.2-1.3) 10/13/23 07:02
AST 32 U/L (14-36) 10/13/23 07:02
ALT 37 U/L (0-35) H 10/13/23 07:02
Alkaline Phosphatase 105 U/L (38-126) 10/13/23 07:02
Most recent labs reviewed.
Micro Results:
10/14/23 08:12 MRSA Screen - Final
Nose No Methicillin Resistant Staphylococcus aureus isolated.
10/12/23 12:37 Streptococcus Screen (JOSE) - Final
Throat/Pharynx No Beta Hemolytic Streptococci Isolated
Streptococcus Rapid Screen - Final
Rapid Strep Screen (Group A) Negative
10/12/23 11:50 Urine Culture - Final
Urine Klebsiella pneumoniae-ESBL
10/12/23 12:39 Influenza Types A & B (KRISTIAN) - Final
Nasal Swab Negative for Influenza A & B, NAAT
Negative results must be combined with clinical observations
and patient history.
Nucleic Acid Amplification test (NAAT)performed on the
[employer] platform.
Urine Culture Final 10/12/23
CC: Greater than 100,000 CFU/ML
Organism 1 Klebsiella pneumoniae-ESBL
1. Klebsiella pneumoniae-ESBL
M.I.C. RX
--------- ---
Amoxicillin/Potas. Clavulanate <=8/4 S
Ampicillin >16 R
Ampicillin/Sulbactam 16/8 I
Cefazolin >16 R
Cefepime >16 R
Ceftazidime 16 R
Ceftriaxone >2 R
Ertapenem <=0.5 S
Ciprofloxacin 0.5 I
Gentamicin <=4 S
Levofloxacin <=0.5 S
Meropenem <=1 S
Nitrofurantoin-Urine Only 64 I
Piperacillin/Tazobactam <=16 S
Tobramycin <=4 S
Trimethoprim/Sulfamethoxazole > R
[2023-10-17] MEDS: KCL 270 MEQ IV (11:05)
[2023-10-17 11:36] VITALS: BP 161/71
[2023-10-17 11:57] LABS: Glucose - Point of Care 163 mg/dl (70-99)
--- NOTE | 2023-10-17 12:07 | CM ---
CM received voicemail from Han[employer] through insurance, auth approved 10/16-10/18, auth #[id number], reference #[id number], next review to [employer], fax [phone], call back # [phone]. CM will continue to follow for all discharge planning needs.
Plan; [facility], auth approved, when medically stable.
[2023-10-17] MEDS: NOVOLOG FLEXPEN-MODERATE RESISTANCE 1 UNITS SC (12:28)
[2023-10-17] MEDS: INVANZ 60 MG IV (12:29)
--- NOTE | 2023-10-17 12:45 | CM ---
Addendum entered by Jade Hardwick 10/17/23 15:32:
faxed script to [facility], copy sent via transfer packet, copy added to chart.
Addendum entered by Jade Hardwick 10/17/23 15:20:
IMM reviewed with daughter via phone, updated re transport time.
Addendum entered by Jade Hardwick 10/17/23 14:59:
Midline placed, added to careport, copy sent with transfer forms.
Left VM for daughter Maia re IMM. Await TCB.
Addendum entered by Jade Hardwick 10/17/23 12:57:
ambulance transport set for 4:30 pm.
Original Note:
Patient for transfer to [facility] today via ambulance transport.
Careport updated.
Insurance authorization given to Mimi. .
[facility]
phone# [phone]
fax# [phone]
--- NOTE | 2023-10-17 14:10 | W.DCSUMMARY ---
Discharge Summary
Discharge Data
Date of Admission: 10/12/23
Date of Discharge: 10/17/23
-
Pending Results: No
Hospital Course
83 female history of atrial fibrillation pacemaker hypertension hyperlipidemia Presented for change in mental status. Found to have UTI. Specifically UTI was ESBL Klebsiella. Provided IV antibiotics with Zosyn. Evaluated by infectious diseases
who recommended continuing Ertapenem 1gm IV q24h to 10/22/23. Midline placed for this reason.
Additionally found to have low potassium sodium. Encourage p.o. intake. Continue to replete as outpatient.
Also found to have deep tissue injuries on the backside for which wound care evaluated. Provided recommendations. Please see below. Outpatient wound care follow-up.
Wound Care Instructions
Clean with saline or soap and water.
L ischium: Adaptic and silicone foam change q other day and prn soilage
R ischium and sacrum: silicone foam change q other day and prn soilage.
Increase protein in diet.
Air Mattress with turning schedule
ROHO cushion for wheelchair, limit time out of bed to 1-2 hrs a day
Discharge Plan
-
Patient Disposition: Correction/SNF
Discharge Diagnosis/Procedures: afib, htn, hld, pacer
Condition: Good
Diet: As tolerated
Activity: As tolerated
Driving Restrictions: No driving
Blood Work: BMP in 2days. Follow up with PCP Dr. Mello
Activity Restrictions/Additional Instructions:
Presented for change in mental status. Found to have UTI. Specifically UTI was ESBL Klebsiella. Provided IV antibiotics with Zosyn. Evaluated by infectious diseases who recommended continuing Ertapenem 1gm IV q24h to 10/22/23. Midline placed for
this reason.
Additionally found to have low potassium sodium. Encourage p.o. intake. Continue to replete as outpatient.
Also found to have deep tissue injuries on the backside for which wound care evaluated. Provided recommendations. Please see below. Outpatient wound care follow-up.
Wound Care Instructions
Clean with saline or soap and water.
L ischium: Adaptic and silicone foam change q other day and prn soilage
R ischium and sacrum: silicone foam change q other day and prn soilage.
Increase protein in diet.
Air Mattress with turning schedule
ROHO cushion for wheelchair, limit time out of bed to 1-2 hrs a day
Instructions: Urinary tract infections in adults, Extended-Spectrum Beta Lactamase Infection
Referrals:
Derrell Mello DO [Family Provider] -
Prescriptions:
Continued
amiodarone 200 mg Tablet
200 mg PO DAILY
gabapentin 100 mg Capsule
100 mg PO TID
metoprolol tartrate 25 mg Tablet
25 mg PO BID
cyanocobalamin (vitamin B-12) 1,000 mcg Tablet
1,000 mcg PO QMONTH
Patient Comments:
10/12/23: taken on Sunday of each month
metformin 500 mg Tablet
500 mg PO DAILY
acetaminophen [Tylenol] 325 mg Tablet
650 mg PO Q4H MDD 3000 mg PRN (Reason: mild pain/fever>100.4)
ondansetron HCl 4 mg Tablet
4 mg PO Q6HPRN PRN (Reason: nausea/vomiting)
lorazepam 0.5 mg Tablet
0.25 mg PO [id number] PRN (Reason: anxiety)
magnesium hydroxide [Milk of Magnesia] 400 mg/5 mL Suspension
30 ml PO HSPRN PRN (Reason: constipation)
bisacodyl 10 mg Suppository
10 mg DC DAILYPRN PRN (Reason: 3 days no bm, mom and lac ineffective)
sodium chloride 1,000 mg Tablet,Soluble
1,000 mg PO TID Qty: 0 0RF
lidocaine 4 % Adhesive Patch,Medicated
1 patch TOPICAL DAILY
mirtazapine 7.5 mg Tablet
7.5 mg PO DAILY
potassium chloride 20 mEq Tablet Extended Release
20 meq PO BID
Discharge Orders:
Discharge Patient (As Directed); Ordered 10/17/23
Ordered By: Federico Jonas
Discharge Date and Time
Print Language: MACEDONIAN
--- NOTE | 2023-10-17 14:17 | VATNOTE ---
10/16 RT 4FR SL MIDLINE placed under sterile technique. patient tolerated. TCL 12cm, ECL0, UAC 31cm. biopatch applied. dressing to be changed weekly.
[2023-10-17 15:29] VITALS: BP 156/81
[2023-10-17 15:37] LABS: Hematocrit 35.9 % (37.0-47.0); Hemoglobin 12.6 g/dL (12.0-16.0); Mean Corp Hgb Conc. 35.1 g/dL (33.0-37.0); Mean Corpuscular Hgb 27.9 pg (27.0-31.0); Mean Corpuscular Volume 79.6 fL (81.0-99.0); Mean Platelet Volume 9.7 fL (7.4-10.4); Platelet Count 321 10^3/uL (130-400); Red Blood Cell Count 4.51 10^6/uL (4.20-5.40); Red Cell Dist. Width 16.6 % (11.5-14.5)
[2023-10-17 15:44] LABS: Blood Urea Nitrogen 5 mg/dl (7-17); Calcium 7.2 mg/dl (8.4-10.2); Carbon Dioxide 22 mmol/L (22-30); Chloride 105 mmol/L (98-107); Estimated Creatinine Clearance 67 ml/min; Glucose 153 mg/dl (70-99); Potassium 3.5 mmol/L (3.5-5.1); Sodium 135 mmol/L (135-145); eGFR > 60.00
== END 2023-10-17 17:38 | DRG 871 ==
LOC: 4 WEST ACU 15:18
PROVIDERS: Physician Assistant; Registered Nurse; ADMITTING PHYSICIAN Student in an Organized Health Care Education/Training Program; ATTENDING PHYSICIAN Hospitalist; CONSULT PHYSICIAN Internal Medicine Infectious Disease; EMERGENCY PHYSICIAN Emergency Medicine; FAMILY PHYSICIAN Student in an Organized Health Care Education/Training Program
DX: A41.9 Sepsis, unspecified organism (principal); G92.8 Other toxic encephalopathy; N39.0 Urinary tract infection, site not specified; E87.20 Acidosis, unspecified; R65.20 Severe sepsis without septic shock; Z87.891 Personal history of nicotine dependence; I48.91 Unspecified atrial fibrillation; I10 Essential (primary) hypertension; E78.5 Hyperlipidemia, unspecified; L89.156 Pressure-induced deep tissue damage of sacral region; L89.326 Pressure-induced deep tissue damage of left buttock; L89.316 Pressure-induced deep tissue damage of right buttock
CPT/HCPCS: 71045; 80048; 80053; 81003; 81015; 82962; 83605; 83735; 85025; 85027; 86308; 86665; 87070; 87077; 87086; 87186; 87502; 87811; 87880; 92526; 92610; 93005; 96365; 97163; 97166; 97530; 97535; 99285; J1335

== ENCOUNTER → 2023-10-19 09:23 | Outpatient (REF) | payer OTHER, SELFPAY ==
[2023-10-19 12:48] LABS: Blood Urea Nitrogen 11 mg/dl (7-17); Calcium 7.8 mg/dl (8.4-10.2); Carbon Dioxide 24 mmol/L (22-30); Chloride 108 mmol/L (98-107); Glucose 128 mg/dl (70-99); Sodium 139 mmol/L (135-145); eGFR > 60.00
== END ==
LOC: OLABN 09:23
PROVIDERS: ATTENDING PHYSICIAN Student in an Organized Health Care Education/Training Program
DX: E87.6 Hypokalemia (principal)
CPT/HCPCS: 80048